=== PATIENT | female | born 1965 | race Caucasian/White ===

== ENCOUNTER → 2020-04-30 13:21 | Outpatient (BNVA) | payer OTHER, SELFPAY | PROVIDERS: PCP Internal Medicine; Referring Provider Internal Medicine; Visit Provider Physician Assistant | DX: Z76.89 Persons encountering health services in other specified circumstances (principal) ==

== ENCOUNTER 2020-05-03 13:31 | Outpatient (REF) | payer OTHER, SELFPAY | END 2020-05-03 13:32 | disposition home or self-care (01) | LOC: HO.LAB 13:31 | PROVIDERS: PCP Internal Medicine; Referring Provider Internal Medicine; Visit Provider Obstetrics & Gynecology | DX: N95.0 Postmenopausal bleeding (principal); L29.2 Pruritus vulvae | CPT/HCPCS: 58100; 88305 ==

== ENCOUNTER → 2020-05-18 16:35 | Outpatient (BNVA) | payer OTHER, SELFPAY | PROVIDERS: Visit Provider Obstetrics & Gynecology | DX: Z76.89 Persons encountering health services in other specified circumstances (principal) ==

== ENCOUNTER 2020-05-24 06:26 | Outpatient (REF) | payer OTHER, SELFPAY ==
[2020-05-24 12:38] LABS: TSH reflex Free T4 4.72 mIU/mL (0.32-4.0)
[2020-05-24 13:27] LABS: Free T4 (Free Thyroxine) 0.97 ng/dL (0.71-1.85)
== END 2020-05-24 06:27 | disposition home or self-care (01) ==
LOC: HO.HMGCLDS 06:26
PROVIDERS: PCP Internal Medicine; Visit Provider Internal Medicine
DX: E03.9 Hypothyroidism, unspecified (principal)
CPT/HCPCS: 84439; 84443

== ENCOUNTER 2020-06-05 15:04 | Outpatient (REF) | payer OTHER, SELFPAY ==
--- NOTE | 2020-06-05 15:13 | US_ITS ---
EXAMINATION: PELVIC ULTRASOUND CLINICAL INFORMATION: Postmenopausal bleeding. History of ablation 10 years ago. COMPARISON: None TECHNIQUE: Transabdominal and transvaginal pelvic ultrasound was performed. Transvaginal exam was performed for better visualization of the uterus and ovaries. Exam is limited due to body habitus. FINDINGS: The uterus is anteverted and measures 10 x 4.9 x 5.1 cm in dimension. The uterus is heterogeneous appearing. The endometrium is not well visualized. There are nabothian cysts in the cervix. The right ovary measures 2.1 x 1.8 x 1.6 cm. There is a 0.9 cm simple cyst in the right ovary. The left ovary is normal-appearing and measures 1.8 x 1.7 x 1 cm. There is no fluid in the pelvis. There are prominent vessels in the right adnexa questionable for pelvic congestion. US/US pelvic complete IMPRESSION: Very limited exam. The uterus is heterogeneous appearing and the endometrium is not well visualized. Small simple 9 mm cyst in the right ovary. Normal-appearing left ovary. Prominent right pelvic vessels questionable for pelvic congestion.
--- NOTE | 2020-06-05 15:13 | US_ITS ---
EXAMINATION: PELVIC ULTRASOUND CLINICAL INFORMATION: Postmenopausal bleeding. History of ablation 10 years ago. COMPARISON: None TECHNIQUE: Transabdominal and transvaginal pelvic ultrasound was performed. Transvaginal exam was performed for better visualization of the uterus and ovaries. Exam is limited due to body habitus. FINDINGS: The uterus is anteverted and measures 10 x 4.9 x 5.1 cm in dimension. The uterus is heterogeneous appearing. The endometrium is not well visualized. There are nabothian cysts in the cervix. The right ovary measures 2.1 x 1.8 x 1.6 cm. There is a 0.9 cm simple cyst in the right ovary. The left ovary is normal-appearing and measures 1.8 x 1.7 x 1 cm. There is no fluid in the pelvis. There are prominent vessels in the right adnexa questionable for pelvic congestion. US/US transvaginal IMPRESSION: Very limited exam. The uterus is heterogeneous appearing and the endometrium is not well visualized. Small simple 9 mm cyst in the right ovary. Normal-appearing left ovary. Prominent right pelvic vessels questionable for pelvic congestion.
== END 2020-06-05 15:05 | disposition home or self-care (01) ==
LOC: HO.US 15:04
PROVIDERS: PCP Internal Medicine; Visit Provider Obstetrics & Gynecology
DX: N95.0 Postmenopausal bleeding (principal)
CPT/HCPCS: 76830; 76856

== ENCOUNTER → 2020-06-08 10:38 | Outpatient (BNVA) | payer OTHER, SELFPAY | PROVIDERS: Visit Provider Advanced Practice Midwife | DX: Z76.89 Persons encountering health services in other specified circumstances (principal) ==

== ENCOUNTER → 2020-07-23 11:06 | Outpatient (BNVA) | payer OTHER, SELFPAY | PROVIDERS: PCP Internal Medicine; Visit Provider Obstetrics & Gynecology ==

== ENCOUNTER 2020-07-26 07:10 | Day surgery (SDC) | payer OTHER, SELFPAY ==
[2020-07-20 11:12] VITALS: BMI 46.0
[2020-07-25 09:00] VITALS: BMI 46.0
--- NOTE | 2020-07-25 11:46 | P.CONAN_ITS ---
Documented by User: Danita Hernandez 07/25/20 11:48 HPI - Anesthesia Eval Consult details Narrative: 55yo F for D&C Diagnostic Hysteroscopy Poss Polypectomy Myomectomy With Myosure [facility] Past Medical History Medical History (Updated 07/26/20 @ 08:09 by Deidra Forbes) Hypothyroid Increased BMI Leg pain, left Overweight Position dependent micturition Family History Family History Mother No problems noted. Father No problems noted. 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 Meds Allergies Allergy/AdvReac Type Severity Reaction Status Date / Time No Known Allergies Allergy Verified 07/26/20 07:21 Exam Exam Date and Time: July 25, 2020 1146 Height,Weight and Vital Signs: Height 5 ft 3 in Weight 118 kg Pertinent Lab Results Pertinent Lab Results: Laboratory Tests 02/06/20 02/06/20 11:33 11:33 WBC 8.8 Hgb 13.6 Hct 43.5 Plt Count 295 Sodium 140 Potassium 4.7 Chloride 107 BUN 11 Creatinine 0.83 Assessment and Plan Assessment Anesthesia Assessment: Chart Reviewed Documented by User: Deidra Forbes 07/26/20 08:13 [facility] Past Medical History Medical History (Updated 07/26/20 @ 08:09 by Deidra Forbes) Hypothyroid Increased BMI Leg pain, left Overweight Position dependent micturition Family History Family History Mother No problems noted. Father No problems noted. 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 Meds Allergies Allergy/AdvReac Type Severity Reaction Status Date / Time No Known Allergies Allergy Verified 07/26/20 07:21 Exam Height,Weight and Vital Signs: Vital Signs Temp Pulse Resp BP Pulse Ox 07/26/20 07:48 98.9 F 72 16 147/74 H 99 Airway Mallampati Class: II TM Dist: >3cm Neck ROM: Full Loose/Missing/Broken Teeth: No (Crowns intact) Heart: RRR ?systolic murmur Lungs: CTAB Assessment and Plan Assessment Anesthesia Assessment: Anesthesia Plan Discussed and Chart Reviewed Final Anesthetic Review NPO: Yes ASA Class: III Final Preanesthetic Review: No Changes in Pt Med Stat, Meds/Allgs Chart Reviewe d, Consent Obtained/Reviewed and Anes Risks/Benef Reviewed Patient Risk: Intermediate Procedure Risk: Low Assessment/Block/Sedation in SS: Assess/Block/Sedation-SS Anesthetic Plan Anesthetic Plan: GA Disposition: Standard PACU
[2020-07-26] VITALS (7 sets, daily range): BP systolic 109–147; BP diastolic 57–74; PULSE 60–72; RESP 16; TEMP 36–37.2; O2SAT 92–99
--- NOTE | 2020-07-26 07:27 | MHC.SHP ---
Pre-Procedural Eval Section A The patient is an INPATIENT: No Changes since office visit: No Cold of Flu in the past 2 weeks, No New Medical Problems, No Changes in Medication and No Patient answered all questions The History & Physical has been completed within 30 days and I have reviewed it.: Yes Section B Chief Complaint: Postmenopausal Bleeding Allergies: Allergies Allergy/AdvReac Type Severity Reaction Status Date / Time No Known Allergies Allergy Verified 07/26/20 07:21 Plan I have reviewed the history and physical and performed a pertinent physical examination on my patient. No changes have occurred unless specified.
[2020-07-26] MEDS: Lactated Ringers 1,000 ML 100 ML IVCONT (08:00)
--- NOTE | 2020-07-26 10:31 | P.OP_ITS ---
Operative Note Operative Note Date of Service: 07/26/20 Narrative: Ms. Spain is a 55 year old with postmenopausal bleeding. She presents today for hysteroscopy d&c after endometrial biopsy performed in the office did not return endometrial tissue and pelvic ultrasound was non-di agnostic (with the endometrial lining not well visualized and unable to be measured. Surgical Risks: The patient was informed of the risks and benefits of a hysteroscopy with dilation and curettage. Risks included but were not limited to bleeding, infection, injury to the vulva, vagina, or cervix, and uterine perforation with possible need for further surgery. The patient expressed understanding of the risks involved, all questions were answered, and the patient consented to the procedure. The patient was taken to the operating room where a time out was confirmed to confirm correct patient and correct procedure. Adequate general anesthesia was established. The patient was then positioned on the operating table in the dorsal lithotomy position with her legs supported using stirrups. All pressure points were padded and a warm blanket was placed to maintain control of core body temperature. The patient was then prepped and draped in the usual sterile fashion. A bimanual exam was performed and the uterus was found to be anteverted. A straight catheter was inserted into the bladder and 150mL of urine was obtained. A bivalve speculum was then inserted into the vagina. The anterior lip of the cervix was visualized and grasped using a single tooth tenaculum. The cervix was adequately dilated using Small dilators for the introduction of the hysteroscope. The hysteroscope was introduced under direct visualization using normal saline solution as the distending media. The hysteroscope was advanced to the fundus and the entire uterine cavity was inspected. The cavity appeared lined with polypoid tissue. Towards the fundus there was what appeared to be a small opening with further extension of the cavity. This was unable to be accessed with the hysteroscope. The myosure device was then advanced and used to take a directed sample of polypoid appearing tissue on the left sidewall. The myosure was then retracted and he hysteroscope was removed with the retracted myosure. A sharp curette was then advanced to the fundus and a sharp curetting was performed starting at the 12 o?clock position and rotating a total of 360 degrees in order to cover all surfaces. Endometrial tissue was obtained and was sent to pathology. Following the curetting, good hemostasis was noted. The single-tooth tenaculum was removed from the anterior lip of the cervix and hemostasis was also noted at the tenaculum puncture sites. The speculum was then removed from the vagina. At the end of the procedure, all needle, sponge, and instrument counts were noted to be correct x2. The patient was transferred to the recovery room in stable condition. Fluid Deficit was recorded on the Myosure tower as being over 1300mL; however, a single back of 3,000mL was used for the procedure with 2600mL of fluid in the suction canister. Actual fluid deficit is therefore estimated to have not exceeded 400mL.
[2020-07-26] MEDS: Acetaminophen 325 MG TABLET 650 MG PO (10:36)
[2020-07-26] MEDS: Ketorolac Tromethamine 15 MG/ML VIAL 30 MG IV (10:45)
--- NOTE | 2020-07-26 11:22 | HO.POSTANES ---
Post Anesthesia Evaluation Post Anesthesia Evaluation Vital Signs: Vital Signs Temp Pulse Resp BP Pulse Ox 07/26/20 10:48 97.2 F 60 16 122/61 96 07/26/20 10:34 97.2 F 68 16 109/61 96 07/26/20 10:20 97.2 F 61 16 116/60 96 07/26/20 10:16 64 16 115/60 97 07/26/20 10:11 62 16 112/57 L 92 07/26/20 10:06 96.8 F 71 16 116/57 L 98 07/26/20 07:48 98.9 F 72 16 147/74 H 99 Anesthesia: General Endotracheal-GETA Mental Status: Awake Pain Control: Satisfactory Nausea/Vomiting: None Hydration: Adequate Anesthesia-Related Issues: No Anes. Related Issues
== END 2020-07-26 11:25 | disposition home or self-care (01) ==
LOC: HO.SSS 07:10
PROVIDERS: PCP Internal Medicine; Visit Provider Obstetrics & Gynecology
PROC: 0UDB8ZX Extraction of Endometrium, Via Natural or Artificial Opening Endoscopic, Diagnostic (ICD-10-PCS; CPT 58558; principal; 2020-07-26 08:40)
DX: N95.0 Postmenopausal bleeding (principal); N84.0 Polyp of corpus uteri; R39.192 Position dependent micturition; E66.3 Overweight; Z79.899 Other long term (current) drug therapy
CPT/HCPCS: 58558; 88305; J1100; J1885; J2250; J2405; J3010

== ENCOUNTER 2020-08-06 11:03 | Outpatient (REF) | payer OTHER, SELFPAY ==
[2020-08-06 14:37] LABS: TSH reflex Free T4 0.13 uIU/mL (0.32-4.0)
[2020-08-06 15:10] LABS: Free T4 (Free Thyroxine) 1.29 ng/dL (0.71-1.85)
== END 2020-08-06 11:04 | disposition home or self-care (01) ==
LOC: HO.HMGCLDS 11:03
PROVIDERS: PCP Internal Medicine; Visit Provider Internal Medicine
DX: E03.9 Hypothyroidism, unspecified (principal)
CPT/HCPCS: 36415; 84439; 84443

== ENCOUNTER → 2020-08-08 15:24 | Outpatient (BNVA) | payer OTHER, SELFPAY | PROVIDERS: PCP Internal Medicine; Visit Provider Obstetrics & Gynecology ==

== ENCOUNTER 2021-01-11 14:02 | Outpatient (REF) | payer OTHER, SELFPAY ==
--- NOTE | ~2021-01-11 | MM_ITS ---
EXAMINATION: MM SCREENING DIGITAL BREAST TOMOSYNTHESIS, BILATERAL CLINICAL INFORMATION: Screening. Asymptomatic. Family history breast cancer, sister. The lifetime risk of breast cancer based on the Tyrer-Cuzick Model is 14%. COMPARISON: Mammography: 01/11/2020; outside exam 08/22/2009 ([facility]). TECHNIQUE: Digital breast tomosynthesis is performed in both the craniocaudal and mediolateral oblique views along with computer-aided detection (CAD). Synthesized 2D images are generated from the tomosynthesis. FINDINGS: There are scattered areas of fibroglandular density (ACR BI-RADS breast composition Category b). There are no significant masses, abnormal calcifications, or other abnormalities. Parenchymal pattern is similar to prior study. No significant changes. MM/MM tomosynthesis screening BI IMPRESSION: No mammographic evidence of malignancy. ASSESSMENT: BI-RADS 1: Negative RECOMMENDATION: Routine annual mammography screening. This patient's information was entered into a reminder system with a target due date for their next mammogram.
== END 2021-01-11 14:03 | disposition home or self-care (01) ==
LOC: HO.MAMMO 14:02
PROVIDERS: PCP Internal Medicine; Visit Provider Internal Medicine
DX: Z12.31 Encounter for screening mammogram for malignant neoplasm of breast (principal)
CPT/HCPCS: 77063; 77067

== ENCOUNTER 2021-01-25 10:06 | Outpatient (REF) | payer OTHER, SELFPAY ==
[2021-01-25 11:24] LABS: Glucose Urine UA NEG (NEG); Leukocyte Esterase Urine NEG (NEG); Nitrite Urine NEG (NEG); Urine Blood NEG (NEG); Urine Ketones NEG (NEG); Urine Protein NEG (NEG-TRACE)
[2021-01-25 11:26] LABS: Appearance Urine CLEAR; Color Urine YELLOW
[2021-01-25 11:38] LABS: Hematocrit 42.6 % (37-47); Hemoglobin 13.5 g/dl (12.0-16.0); Mean Corpuscular HGB Conc 31.7 g/dl (31.0-35.0); Mean Corpuscular Hemoglobin 29.3 pg (27.0-33.0); Mean Corpuscular Volume 92.4 fL (80-98); Mean Platelet Volume 11.8 fL (9.4-12.3); Platelet Count 232 X10*3/uL (160-400); Red Blood Count 4.61 X10*6/uL (4.20-5.50); Red Cell Distribution Width 13.4 % (11.0-16.0); White Blood Count 6.4 X10*3/uL (4.8-10.8)
[2021-01-25 11:41] LABS: Mucus Urine 1+ /LPF; RBC Urine 0 /HPF (0); Squamous Epithelial Cell Urine 4+ /LPF; WBC Urine 0 /HPF (0-4)
[2021-01-25 12:01] LABS: Alanine Aminotransferase 7 U/L (0-31); Albumin Level 3.8 g/dL (3.5-5.0); Alkaline Phosphatase 138 U/L (39-117); Anion Gap 13 (12-20); Aspartate Amino Transferase 18 U/L (5-31); Bilirubin Total 0.5 mg/dL (0.0-1.0); Blood Urea Nitrogen 15 mg/dL (9-16); Calcium 9.1 mg/dL (8.4-10.2); Carbon Dioxide 24 mmol/L (22-29); Chloride 108 mmol/L (96-108); Cholesterol 162 mg/dL; Estimated Glomerular Filt Rate > 60; Glucose Fasting 103 mg/dL (60-99); HDL Cholesterol 44 mg/dL; LDL Cholesterol Calculated 107 mg/dl; Potassium 4.5 mmol/L (3.3-5.1); Sodium 140 mmol/L (135-145); Total Protein 6.7 g/dL (6.5-8.0); Triglycerides 57 mg/dL
[2021-01-25 12:24] LABS: TSH reflex Free T4 2.39 uIU/mL (0.32-4.0)
== END 2021-01-25 10:07 | disposition home or self-care (01) ==
LOC: HO.HMGCLDS 10:06
PROVIDERS: PCP Internal Medicine; Visit Provider Internal Medicine
DX: Z00.00 Encounter for general adult medical examination without abnormal findings (principal)
CPT/HCPCS: 36415; 80053; 80061; 81001; 84443; 85027

== ENCOUNTER → 2021-02-12 09:09 | Outpatient (BNVA) | payer OTHER, SELFPAY | PROVIDERS: PCP Internal Medicine; Visit Provider Advanced Practice Midwife ==

== ENCOUNTER 2022-01-13 10:52 | Outpatient (REF) | payer OTHER, SELFPAY ==
--- NOTE | ~2022-01-13 | MM_ITS ---
EXAMINATION: MM SCREENING DIGITAL BREAST TOMOSYNTHESIS, BILATERAL CLINICAL INFORMATION: Screening. Asymptomatic. The lifetime risk of breast cancer based on the Tyrer-Cuzick Model is 14%. COMPARISON: Mammography: 01/11/2021, 01/11/2020; outside mammography 08/22/2009 ([facility]). TECHNIQUE: Digital breast tomosynthesis is performed in both the craniocaudal and mediolateral oblique views along with computer-aided detection (CAD). Synthesized 2D images are generated from the tomosynthesis. FINDINGS: There are scattered areas of fibroglandular density (ACR BI-RADS breast composition Category b). There are no significant masses, abnormal calcifications, or other abnormalities. No developing density or architectural abnormality. No significant changes. MM/MM tomosynthesis screening BI IMPRESSION: No mammographic evidence of malignancy. ASSESSMENT: BI-RADS 1: Negative RECOMMENDATION: Routine annual mammography screening. This patient's information was entered into a reminder system with a target due date for their next mammogram.
== END 2022-01-13 10:53 | disposition home or self-care (01) ==
LOC: HO.MAMMO 10:52
PROVIDERS: PCP Internal Medicine; Visit Provider Internal Medicine
DX: Z12.31 Encounter for screening mammogram for malignant neoplasm of breast (principal)
CPT/HCPCS: 77063; 77067

== ENCOUNTER 2022-01-27 13:42 | Outpatient (REF) | payer OTHER, SELFPAY ==
[2022-01-27 16:29] LABS: MANUAL DIFF FLAG NO
[2022-01-27 16:45] LABS: Basophils Percent Auto 0.6 % (0-2); Eosinophils Absolute Auto 0.1 X10*3/uL (0.0-0.4); Eosinophils Percent Auto 1.7 % (0-4); Hematocrit 42.6 % (37.0-47.0); Hemoglobin 13.8 g/dl (12.0-16.0); Imm Gran Abs Auto 0.02 X10*3/uL (0.00-0.03); Imm Gran Pct Auto 0.3 % (0.0-0.4); Lymphocytes Absolute Auto 2.5 X10*3/uL (1.2-4.9); Lymphocytes Percent Auto 39.4 % (20-40); Mean Corpuscular HGB Conc 32.4 g/dl (31.0-35.0); Mean Corpuscular Hemoglobin 29.9 pg (27.0-33.0); Mean Corpuscular Volume 92.4 fL (80.0-98.0); Mean Platelet Volume 10.6 fL (9.4-12.3); Monocytes Absolute Auto 0.5 X10*3/uL (0.1-1.2); Monocytes Percent Auto 7.6 % (2-11); Neutrophils Absolute Auto 3.3 x10*3/uL (2.0-8.3); Neutrophils Percent Auto 50.4 % (45-73); Platelet Count 248 X10*3/uL (160-400); Red Blood Count 4.61 X10*6/uL (4.20-5.50); Red Cell Distribution Width 13.2 % (11.0-16.0); White Blood Count 6.5 X10*3/uL (4.8-10.8)
[2022-01-27 16:56] LABS: Alanine Aminotransferase 9 U/L (0-31); Albumin Level 4.1 g/dL (3.5-5.0); Alkaline Phosphatase 95 U/L (39-117); Anion Gap 11 (12-20); Aspartate Amino Transferase 17 U/L (5-31); Bilirubin Total 0.7 mg/dL (0.0-1.0); Blood Urea Nitrogen 18 mg/dL (9-16); Carbon Dioxide 26 mmol/L (22-29); Chloride 107 mmol/L (96-108); Cholesterol 196 mg/dL; Estimated Glomerular Filt Rate > 60; Glucose Fasting 85 mg/dL (60-99); HDL Cholesterol 55 mg/dL; LDL Cholesterol Calculated 131 mg/dl; Potassium 4.7 mmol/L (3.3-5.1); Sodium 139 mmol/L (135-145); Triglycerides 52 mg/dL
[2022-01-27 17:15] LABS: TSH reflex Free T4 2.37 uIU/mL (0.32-4.0)
== END 2022-01-27 13:43 | disposition home or self-care (01) ==
LOC: HO.HMGCLDS 13:42
PROVIDERS: Visit Provider Internal Medicine
DX: Z00.00 Encounter for general adult medical examination without abnormal findings (principal); E03.9 Hypothyroidism, unspecified
CPT/HCPCS: 36415; 80053; 80061; 84443; 85025

== ENCOUNTER 2023-01-13 13:55 | Outpatient (REF) | payer OTHER, SELFPAY ==
[2023-01-13 16:19] LABS: MANUAL DIFF FLAG NO
[2023-01-13 16:30] LABS: Basophils Percent Auto 0.5 % (0-2); Eosinophils Absolute Auto 0.1 X10*3/uL (0.0-0.4); Eosinophils Percent Auto 1.4 % (0-4); Hematocrit 43.1 % (37.0-47.0); Hemoglobin 13.9 g/dl (12.0-16.0); Imm Gran Abs Auto 0.03 X10*3/uL (0.00-0.03); Imm Gran Pct Auto 0.4 % (0.0-0.4); Lymphocytes Percent Auto 26.8 % (20-40); Mean Corpuscular HGB Conc 32.3 g/dl (31.0-35.0); Mean Corpuscular Hemoglobin 29.6 pg (27.0-33.0); Mean Corpuscular Volume 91.9 fL (80.0-98.0); Mean Platelet Volume 10.7 fL (9.4-12.3); Monocytes Absolute Auto 0.6 X10*3/uL (0.1-1.2); Monocytes Percent Auto 7.7 % (2-11); Neutrophils Absolute Auto 4.7 x10*3/uL (2.0-8.3); Neutrophils Percent Auto 63.2 % (45-73); Platelet Count 275 X10*3/uL (160-400); Red Blood Count 4.69 X10*6/uL (4.20-5.50); White Blood Count 7.4 X10*3/uL (4.8-10.8)
[2023-01-13 20:46] LABS: Alanine Aminotransferase 11 U/L (0-31); Albumin Level 3.9 g/dL (3.5-5.0); Alkaline Phosphatase 109 U/L (39-117); Anion Gap 15 (12-20); Aspartate Amino Transferase 18 U/L (5-31); Bilirubin Total 0.7 mg/dL (0.0-1.0); Blood Urea Nitrogen 17 mg/dL (9-16); Calcium 9.9 mg/dL (8.4-10.2); Carbon Dioxide 22 mmol/L (22-29); Chloride 108 mmol/L (96-108); Cholesterol 231 mg/dL; Estimated Glomerular Filt Rate > 60; Glucose Fasting 91 mg/dL (60-99); HDL Cholesterol 63 mg/dL; LDL Cholesterol Calculated 150 mg/dl; Potassium 4.2 mmol/L (3.3-5.1); Sodium 141 mmol/L (135-145); Total Protein 7.2 g/dL (6.5-8.0); Triglycerides 90 mg/dL
[2023-01-13 21:00] LABS: TSH reflex Free T4 2.34 uIU/mL (0.32-4.0)
== END 2023-01-13 13:56 | disposition home or self-care (01) ==
LOC: HO.HMGCLDS 13:55
PROVIDERS: PCP Internal Medicine; Visit Provider Internal Medicine
DX: Z00.00 Encounter for general adult medical examination without abnormal findings (principal); E03.9 Hypothyroidism, unspecified
CPT/HCPCS: 36415; 80053; 80061; 84443; 85025

== ENCOUNTER → 2023-01-15 10:00 | Outpatient (BNV) | payer OTHER, SELFPAY | PROVIDERS: PCP Internal Medicine; Visit Provider Radiology Diagnostic Radiology | DX: Z12.31 Encounter for screening mammogram for malignant neoplasm of breast (principal) | CPT/HCPCS: 77063; 77067 ==

== ENCOUNTER 2023-01-15 10:27 | Outpatient (REF) | payer OTHER, SELFPAY ==
--- NOTE | ~2023-01-15 | MM_ITS ---
EXAMINATION: MM SCREENING DIGITAL BREAST TOMOSYNTHESIS, BILATERAL CLINICAL INFORMATION: Screening. Asymptomatic. The lifetime risk of breast cancer based on the Tyrer-Cuzick Model is 13.2%. COMPARISON: Mammography: This study is compared with prior exams dating back to to 2 oh. TECHNIQUE: Digital breast tomosynthesis is performed in both the craniocaudal and mediolateral oblique views along with computer-aided detection (CAD). Synthesized 2D images are generated from the tomosynthesis. FINDINGS: There are scattered areas of fibroglandular density (ACR BI-RADS breast composition Category b). There are no significant masses, abnormal calcifications, or other abnormalities. MM/MM tomosynthesis screening BI IMPRESSION: No mammographic evidence of malignancy. ASSESSMENT: BI-RADS BI-RADS 1 - Negative RECOMMENDATION: Routine annual mammography screening. 1 year F/U This examination should not preclude the clinical evaluation of a suspicious palpable abnormality. This patient's information was entered into a reminder system with a target due date for their next mammogram.
== END 2023-01-15 10:28 | disposition home or self-care (01) ==
LOC: HO.MAMMO 10:27
PROVIDERS: PCP Internal Medicine; Visit Provider Internal Medicine
DX: Z12.31 Encounter for screening mammogram for malignant neoplasm of breast (principal)
CPT/HCPCS: 77063; 77067

== ENCOUNTER 2023-01-28 10:24 | Outpatient (AMB) | payer OTHER, SELFPAY ==
--- NOTE | 2023-01-28 10:42 | A.OFFPC_ITS ---
Vital Signs 01/28/23 10:43 Height 5 ft 3 in Weight 244 lb BMI 43.2 BP 130/76 Blood Pressure Location Lt brachial Position Sitting Pulse 77 Pulse Source Pulse Oximeter Pulse Oximetry (%) 99 Oxygen Delivery Method Room Air Intake Visit Reasons: Annualcheck up Intake Note: Pt is here today for PE. [place] [facility] [place]. Allergies No Known Allergies Allergy (Verified 01/28/23 10:44) Medication List - Last Reconciled 01/28/23 by Hailey Vega MD cholecalciferol (vitamin D3) 25 mcg PO DAILY levothyroxine 50 mcg PO DAILY Tobacco use date assessed: 01/28/23 Dental Screening Dental Screen Date: 01/28/23 Did you have a dental visit in the last 12 months?: Yes Did you have a dental problem in the last 6 months where you did not have access to dental care?: No Was dental information given to patient?: Patient has dentist HPI Annualcheck up HPI Details patient presents for physical [facility] Medical History (Updated 01/28/23 @ 11:27 by Hailey Vega MD) Annual physical exam Hypothyroid Increased BMI Migraine Overweight Position dependent micturition Surgical History H/O colonoscopy History of endometrial ablation Family History Mother No problems noted. Father No problems noted. 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 1. Little interest or pleasure in doing things: not at all 2. Feeling down, depressed, or hopeless: not at all 3. Trouble falling or staying asleep, or sleeping too much: not at all 4. Feeling tired or having little energy: not at all 5. Poor appetite or overeating: not at all 6. Feeling bad about yourself - or that you are a failure or have let yourself or your family down: not at all 7. Trouble concentrating on things, such as reading the newspaper or watching television: not at all 8. Moving or speaking so slowly that other people could have noticed. Or the opposite - being so fidgety or restless that you have been moving around a lot more than usual: not at all 9. Thoughts that you would be better off or of hurting yourself in some way: not at all Total score: 0 Depression Screening Interpretation: Negative Source: Developed by Drs. Josiah Garcia, Ramonita James, Jasiel Elam and colleagues, with an educational devin from [employer]. Thrive Questionnaire Date Thrive assessed: 01/28/23 I am a: Patient What is your living situation today?: I have a steady place to live Within the past 12 months, did the food you bought not last and you didn't have the money to get more?: Never true Within the past 12 months, did you worry whether your food would run out before you got money to buy more?: Never true Do you have trouble paying for medicines?: No Do you have trouble getting transportation to medical appointments?: No Do you have trouble paying your heating and electricity bill?: No Do you have trouble taking care of your child, family member or friend?: No Do you have trouble with day-to-day activities such as bathing, preparing meals, shopping, managing finances, etc.?: No Are you currently unemployed and looking for a job?: No Are you interested in more education?: No Please select the resources that you would like help with: None Currently or been in a relationship where the following occur: no concerns reported AUDIT C Alcohol Use Questionnaire (AUDIT-C) 1. How often do you have a drink containing alcohol?: Never 3. How often do you have six or more drinks on one occasion?: Never Total Score: 0 LILIYA-7 AMB Questionnaire LILIYA-7 Date LILIYA - 7 assessed: 01/28/23 Feeling nervous, anxious, or on edge: 0 = Not at all Not being able to stop or control worryin = Not at all Worrying too much about different things: 0 = Not at all Trouble relaxin = Not at all Being so restless that it is hard to sit still: 0 = Not at all Becoming easily annoyed or irritable: 0 = Not at all Feeling afraid as if something awful might happen: 0 = Not at all Total LILIYA-7 score (0-4 normal; 5-9 mild; 10-14 moderate; 15-21 severe): 0 Source: Developed by Drs. Josiah Garcia, Ramonita James, Jasiel Elam and colleagues, with an educational devin from [employer]. Review of Systems Const All systems reviewed & are unremarkable except as noted in HPI and below Reports no additional complaints Eyes Reports no additional complaints ENT Reports no additional complaints Card Reports no additional complaints Resp Reports no additional complaints GI Reports no additional complaints Reports no additional complaints Physical exam (Primary Care) Vital Signs: Last Vital Signs Pulse 77 01/28/23 10:43 BP 130/76 01/28/23 10:43 Pulse Ox 99 01/28/23 10:43 Oxygen Delivery Method Room Air 01/28/23 10:43 BMI result Body Mass Index 43.2 Tobacco/Smoking Status: Tobacco use Status Tobacco use date assessed 01/28/23 01/28/23 10:47 Patient Tobacco Use Status Never used Tobacco 01/28/23 10:47 e-Cigarette/Vaping Use Never Used 01/28/23 10:47 PHQ-9: PHQ-9 Score PHQ-9: Total score 0 01/28/23 10:47 Depression Screening Interpretation: Negative Thrive Assessment: Date of Thrive Assessment Date Thrive assessed 01/28/23 01/28/23 10:47 Currently or been in a relationship where the following occur: no concerns reported Const General: no acute distress HENMT Head: Yes normal to inspection Ears: hearing grossly normal bilaterally Face and sinus: Yes normal facial exam Throat: Yes posterior oropharynx normal Eyes General: appearance normal, both eyes and all related structures Neck Neck: Yes no lymphadenopathy and Yes supple Resp Effort & Inspection: normal respiratory effort Auscultation: clear to auscultation bilaterally Cardio Rhythm: regular rhythm Heart sounds: S1 normal heart sound present and S2 normal heart sound present GI Inspection: Yes normal to inspection Palpation (GI): Soft to palpation Percussion: Yes normal to percussion Auscultation: normal bowel sounds Assessment and Plan Assessment & Plan (1) Hyperlipidemia: Code(s): E78.5 - Hyperlipidemia, unspecified Plan: low-cholesterol diet increase exercise discussed with the patient. She will be referred to head housekeeper discussed low-cholesterol diet. Patient will follow-up in 6 months with a fasting labs before (2) Heart murmur: Code(s): R01.1 - Cardiac murmur, unspecified (3) Hypothyroid: Comment: taking levothyroxine Code(s): E03.9 - Hypothyroidism, unspecified (4) Annual physical exam: Code(s): Z00.00 - Encounter for general adult medical examination without abnormal findings Plan: healthy lifestyle discussed with the patient. She is up-to-date with ma mmogram colonoscopy and Pap smear Orders: Orders CA echo transthoracic complete Today R01.1 - Cardiac murmur, unspecified Lipid Panel 6 Months E78.5 - Hyperlipidemia, unspecified Referrals Nutrition/Dietitian Referral E78.5 - Hyperlipidemia, unspecified Medications: Refilled levothyroxine 50 mcg PO DAILY 90 tabs 3RF Coding Level of Care Code Est Pt Prev Care 40-64y(86944) Diagnoses Hyperlipidemia E78.5 Heart murmur R01.1 Hypothyroid E03.9 Annual physical exam Z00.00
[2023-01-28 10:43] VITALS: BP 130/76; PULSE 77; O2SAT 99; BMI 43.2
== END 2023-01-28 11:31 | disposition home or self-care (01) ==
PROVIDERS: PCP Internal Medicine; Visit Provider Internal Medicine
DX: E78.5 Hyperlipidemia, unspecified (principal); R01.1 Cardiac murmur, unspecified; E03.9 Hypothyroidism, unspecified; Z00.00 Encounter for general adult medical examination without abnormal findings
CPT/HCPCS: 99396

== ENCOUNTER → 2023-02-05 12:59 | Outpatient (REF) | payer OTHER, SELFPAY ==
--- NOTE | 2023-02-05 13:01 | CA_ITS ---
Transthoracic Echocardiogram Patient (Last, First, Middle): Amarilis Spain, Gender: Female Date of : 1965 Age: 57 Procedure Date: 02/05/2023 Procedure Type: Transthoracic Echocardiogram Location: OP Height: 160.02 cm Weight: 99.79 kg BSA: 2.01 m2 Heart Rate: bpm BP: 130 / 74 mmHg Director Non Profit: TO Referring MD: Hailey Vega MD Symptoms: R01.1 - Cardiac murmur, unspecified Study Quality: Adequate ECG Rhythm: Sinus Conclusions: - The left ventricular systolic function is normal. The calculated ejection fraction is 67% by biplane method. - There is moderate calcification of the aortic valve. - There is moderate mitral annular calcification. Findings Left Ventricle Normal left ventricular cavity size. The left ventricular systolic function is normal. The calculated ejection fraction is 67% by biplane method. There is no evidence of regional wall motion abnormalities. Evidence suggests grade I (mild) diastolic dysfunction. There is mild septal asymmetric hypertrophy. Right Ventricle Normal right ventricular cavity size and systolic function. Atria The left atrium is likely dilated. The right atrium is normal in size. Aortic Valve There is moderate calcification of the aortic valve. There is no aortic valve stenosis. There is no aortic valve regurgitation. Mitral Valve There is mild anterior mitral leaflet thickening. There is moderate mitral annular calcification. There is no mitral valve regurgitation. There is no mitral valve stenosis. Pulmonic Valve The pulmonic valve is likely normal. Tricuspid Valve Normal tricuspid valve structure. There is trace tricuspid valve regurgitation. There is no evidence of pulmonary hypertension. Great Vessels The asc aorta is normal in size. Venous The inferior vena cava is normal in size and collapses greater than 50% with inspiration. Pericardium/Pleural There is no evidence of pericardial effusion. Prior Study Comparison Changes noted compared to prior study dated: 07/01/2002. Valvular calcification noted. Measurements 2D Linear Measurements IVSd: 1.20 0.6-0.9/0.6-1.0 cm LVIDd: 4.50 3.9-5.3/4.2-5.9 cm LVIDd Index: 2.24 2.4-3.2/2.2-3.1 cm/m2 LVIDs: 2.80 2.0-3.6 cm LVPWd: 1.00 0.7-1.1 cm LA Diam: 4.10 2.7-3.8/3.0-4.0 cm LAIDs Index: 2.04 1.5-2.3 cm/m2 LV Mass: 218.02 67-162/88-224 g LV Mass Index: 108.47 43-95/49-115 g/m2 LVOT Diam: 2.00 3.0+(-)1.3 cm 2D Systolic Function EF 4C: 66.70 >55% EF 2C: 69.30 >55% EF BiP: 66.70 >55% Mitral Valve MV VTI: 0.49 MV Pk Castillo: 1.47 MV Mn Castillo: 0.87 MV Pk Grad: 9.00 MV Mn Grad: 4.00 MV Pk E: 1.03 MV PK A: 1.48 MV Decel Time: 339.00 E/A: 0.70 E'Lateral: 5.33 E'Medial: 4.35 E/E' Med: 23.70 E/E' Lat: 19.30 PHT: 99.00 MVA PHT: 2.22 MVA Continuity: 1.97 Decel [place]: 3.03 Aortic Valve AoV Pk Castillo: 2.10 AoV Mn Castillo: 1.37 AoV VTI: 0.45 AoV Pk Grad: 18.00 Aov Mn Grad: 9.00 SREEKANTH Cont.VTI: 2.12 LVOT LVOT Pk Castillo: 1.23 LVOT Mn Castillo: 0.83 LVOT VTI: 0.31 LVOT Pk Grad: 6.00 LVOT Mn Grad: 3.00 LVOT Diam: 2.00 LVOT Area: 3.14 Diastolic Function MV Pk E: 1.03 MV Pk A: 1.48 E/A: 0.70 E'Medial: 4.35 E/E' Med: 23.70 E' Laterial: 5.33 E/E' Lat: 19.30 Right Ventricle TAPSE (mm): 30.90 TVS' Castillo: 13.50 Tricuspid Valve RA Press: 3.00 Great Vessels Aorta Sinus of Valsalva: 3.10 2.0-3.[address] [place]: 2.30 1.7-3.4 cm Ao Asc: 3.00 2.1-3.4 cm Updated in Other Vendor System with Status of Final Alex Mejia MD electronically signed on 02/07/2023 10:38:31 AM with status of Final
== END ==
LOC: HO.CARD 12:59
PROVIDERS: Visit Provider Internal Medicine
DX: R01.1 Cardiac murmur, unspecified (principal)
CPT/HCPCS: 93306

== ENCOUNTER → 2023-02-05 13:01 | Outpatient (BNV) | payer OTHER, SELFPAY | PROVIDERS: Visit Provider Internal Medicine | DX: I34.81 Nonrheumatic mitral (valve) annulus calcification (principal); I35.8 Other nonrheumatic aortic valve disorders | CPT/HCPCS: 93306 ==

== ENCOUNTER 2023-02-20 09:56 | Outpatient (AMB) | payer OTHER, SELFPAY ==
--- NOTE | 2023-02-20 09:58 | MHC.OFFVIS ---
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 Doing well with no plate embosser concerns. Patient admits she tries to eat a healthy diet including Vitamin D. She stays active with exercise. Currently sexually active. Denies vaginal dryness, itching and irritation. STD screening offered; she accepts. Denies family hx of colon and ovarian cancer. Last pap smear 01/09/20. Last mammogram 01/15/23. UTD on colonoscopy. REPLACED BY [facility] Medical History Annual physical exam Hypothyroid Increased BMI Migraine Overweight Position dependent micturition Surgical History H/O colonoscopy History of endometrial ablation Family History Mother No problems noted. Father No problems noted. 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 Cognitive needs: No Hearing needs: No Vision needs: No Female Reproductive History Menstrual Age of Menarche: 15 Menopause type: natural Total pregnancies: 2 Full term: 2 Number of Living Children: 2 Date of last pap smear: 01/09/20 Date of Mammogram: 01/15/23 Physical Exam Vital Signs: Last Vital Signs BP 124/80 02/20/23 09:59 BMI result Body Mass Index 43.0 Const General: cooperative, healthy appearing, no acute distress, well developed and alert Orientation/consciousness: patient oriented x3 HEENT Head: Yes normal to inspection Eyes General: appearance normal, both eyes and all related structures Neck Neck: Yes normal visual inspection Thyroid: Thyroid normal Chest Chest palpation & inspection: normal inspection of the chest Breast/axilla inspection: normal inspection of the breasts (no puckering, dimpling, peau de orange, retraction, discharge, masses) Breast/axilla palpation: normal palpation of the breasts Resp Effort & Inspection: normal respiratory effort GI Inspection: Yes normal to inspection and Yes obesity Palpation (GI): Soft to palpation (to palpation) Rectal Exam - Female: deferred General: Yes bladder normal to inspection External Female Exam: normal external appearance and normal appearance of the urethra Speculum Exam - Vagina: normal appearance of the vagina, normal palpation and vagina atrophic Speculum Exam - Cervix: normal appearance of the cervix and normal palpation Bimanual exam- vagina & uterus: normal palpation and normal palpation Bimanual Exam- Adnexa, other: normal adnexae and no masses Skin General skin exam: no rashes or lesions noted Neuro General: patient oriented x3 Cognition (Neuro): normal cognition Extrem General: Yes normal to inspection Psych Attitude: cooperative Thought process: Normal thought process present Assessment & Plan Assessment & Plan (1) Encounter for well woman exam: Code(s): Z01.419 - Encounter for gynecological examination (general) (routine) without abnormal findings Plan: Discussed: Current recommendations for pap smears per ASCCP guidelines. Breast awareness and periodic self breast exams. Encouraged yearly mammograms. Maintaining a healthy lifestyle including a well balanced diet including Calcium and Vitamin D and routine exercise. Contact office with any PMB. All of her questions and concerns were addressed to the best of my ability RTO in 1 year for AG. Coding Level of Care Code Est Pt Prev Care 40-64y(89094) Diagnoses Encounter for well woman exam Z01.419
[2023-02-20 09:59] VITALS: BP 124/80; BMI 43.0
== END 2023-02-20 10:25 | disposition home or self-care (01) ==
LOC: HO.HWS 09:56
PROVIDERS: PCP Internal Medicine; Visit Provider Advanced Practice Midwife
DX: Z01.419 Encounter for gynecological examination (general) (routine) without abnormal findings (principal)
CPT/HCPCS: 99396

== ENCOUNTER → 2023-02-20 09:56 | Outpatient (BNVA) | payer OTHER, SELFPAY | PROVIDERS: PCP Internal Medicine; Visit Provider Advanced Practice Midwife ==

== ENCOUNTER 2023-04-06 11:26 | Outpatient (AMB) | payer OTHER, SELFPAY ==
--- NOTE | 2023-04-06 11:43 | A.OFFVIS_ITS ---
Intake VS Expanded 04/06/23 11:44 04/06/23 11:49 Height 5 ft 3 in 5 ft 3 in Weight 250 lb 0.067 oz 250 lb BMI 44.3 44.3 Intake Visit Reasons: Hyperlipidemia/Confirmed Allergies No Known Allergies Allergy (Verified 02/20/23 10:03) HPI Nutrition Presentation Details Pt presents for MNT for hyperlipidemia Pt reports having had success with weight loss in 2020 reaching 220 lbs from 325 lbs . Pt reports lately increasing on snacks particularly at night. Pt is interested in resuming diet modifications to promote improvement in chol and weight. Pt reports keeping physically active, counting steps/miles reports walking 20-30 miles walk per week Pt reports having 3 meals/day following healthy plate method, however increasing snacks at night TFP-Jowgubr-Cr.Jeor Equation Height 5 ft 3 in Weight 250 lb Resting Metabolic Rate 1676.77 Calculated Activity Level Mild Activity Calories Needed to Maintain Weight 2305.56 Diagnosis Nutrition problem #1 excessive energy intake As related to (etiology) #1 diagnosis As evidenced by (sign/symptom) #1 high BMI (bmi at 44.3 (04/2023) , wt gain of 30 lbs since 2019) Most Recent Diabetes Results: Cholesterol 231 mg/dL 01/13/23 HDL Cholesterol 63 mg/dL 01/13/23 Triglycerides 90 mg/dL 01/13/23 Creatinine 0.80 mg/dL (0.5-1.4) 01/13/23 Blood Urea Nitrogen 17 mg/dL (9-16) H 01/13/23 Sodium 141 mmol/L (135-145) 01/13/23 Potassium 4.2 mmol/L (3.3-5.1) 01/13/23 Chloride 108 mmol/L (96-108) 01/13/23 Carbon Dioxide 22 mmol/L (22-29) 01/13/23 Calcium 9.9 mg/dL (8.4-10.2) 01/13/23 AST 18 U/L (5-31) 01/13/23 ALT 11 U/L (0-31) 01/13/23 Total Protein 7.2 g/dL (6.5-8.0) 01/13/23 Albumin 3.9 g/dL (3.5-5.0) 01/13/23 [facility] Medical History Annual physical exam Hypothyroid Increased BMI Migraine Overweight Position dependent micturition Surgical History H/O colonoscopy History of endometrial ablation Family History Mother No problems noted. Father No problems noted. 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 Cognitive needs: No Hearing needs: No Vision needs: No Female Reproductive History Menstrual Age of Menarche: 15 Assessment & Plan Assessment & Plan (1) Hyperlipidemia: Code(s): E78.5 - Hyperlipidemia, unspecified (2) Morbid obesity with BMI of 40.0-44.9, adult: Code(s): E66.01 - Morbid (severe) obesity due to excess calories; Z68.41 - Body mass index [BMI] 40.0-44.9, adult Plan: wt: 114 kg Est kcal needs as per MSJ: 2300 (40% carb, 30% protein/fat) Est fluid needs as per 30 ml/d: 3400 Est prot per day as per 1 g/kg bw: 114 Recommend fiber intake : 8-10 g per day and gradually increase to 25-28 g per day for women and 35-38 g for men or as tolerated Recommend sodium intake per day : less than 2000 mg Educated patient on: ( R = reviewed V = verbalizes understanding N/R = needs review N/A = not applicable * Food sources of carbohydrate, adequate serving sizes and its role in various health conditions: R V * Differences between complex carbohydrates a simple carbohydrates, role of fiber in diet: R V * Differences between types of fats and role in diet (mono on saturated fat fatty acids, saturated fatty acids, trans fats): R V * Food sources of sodium in salt and healthy modifications for heart health in kidney health: R V * Vitamins and minerals: R V * Healthy plate method concept: R V * Physical activity: Benefits a precaution: R V Patient Instructions: Work on reduction choosing high fiber foods and reducing calories at bedtime to less than 150 calories example choose 2 small fruits and 1 tbsp of peanut butter see list of snack ideas practice mindful eating Coding Level of Care Code Nutr Indiv Intake (37799) Diagnoses Hyperlipidemia E78.5 Morbid obesity with BMI of 40.0-44.9, adult E66.01; Z68.41 Time Spent (min) 30
[2023-04-06 11:44] VITALS: BMI 44.3
[2023-04-08 13:05] VITALS: BMI 44.3
== END 2023-04-06 12:15 | disposition home or self-care (01) ==
LOC: HO.ENCR 11:26
PROVIDERS: PCP Internal Medicine; Visit Provider Dietitian, Registered
DX: E78.5 Hyperlipidemia, unspecified (principal); E66.01 Morbid (severe) obesity due to excess calories; Z68.41 Body mass index [BMI] 40.0-44.9, adult

== ENCOUNTER → 2023-04-06 11:26 | Outpatient (BNVA) | payer OTHER, SELFPAY | PROVIDERS: PCP Internal Medicine; Visit Provider Dietitian, Registered | DX: E78.5 Hyperlipidemia, unspecified (principal); E66.01 Morbid (severe) obesity due to excess calories; Z68.41 Body mass index [BMI] 40.0-44.9, adult; Z71.3 Dietary counseling and surveillance | CPT/HCPCS: 97802 ==

== ENCOUNTER 2023-07-23 14:41 | Outpatient (REF) | payer OTHER, SELFPAY ==
[2023-07-23 17:24] LABS: Cholesterol 189 mg/dL (<200); HDL Cholesterol 45 mg/dL (>40); LDL Cholesterol Calculated 128 mg/dL (<100); Triglycerides 83 mg/dL (<150)
== END 2023-07-23 14:42 | disposition home or self-care (01) ==
LOC: HO.HMGCLDS 14:41
PROVIDERS: PCP Internal Medicine; Visit Provider Internal Medicine
DX: E78.5 Hyperlipidemia, unspecified (principal)
CPT/HCPCS: 36415; 80061

== ENCOUNTER 2023-08-05 08:23 | Outpatient (AMB) | payer OTHER, SELFPAY ==
--- NOTE | 2023-08-05 08:25 | MHC.PC.OV ---
Vital Signs 08/05/23 08:26 Height 5 ft 3 in Weight 236 lb BMI 41.8 BP 118/76 Blood Pressure Location Lt brachial Position Sitting Pulse 68 Pulse Source Pulse Oximeter Pulse Oximetry (%) 98 Oxygen Delivery Method Room Air Intake Visit Reasons: 6 month follow up Intake Note: Pt is here today for 6 months follow up visit. Allergies No Known Allergies Allergy (Verified 08/05/23 08:28) Medication List - Last Reconciled 08/05/23 by Hailey Vega MD cholecalciferol (vitamin D3) 25 mcg PO DAILY levothyroxine 50 mcg PO DAILY Tobacco use date assessed: 08/05/23 Dental Screening Dental Screen Date: 08/05/23 Did you have a dental visit in the last 12 months?: Yes Did you have a dental problem in the last 6 months where you did not have access to dental care?: No Was dental information given to patient?: Patient has dentist HPI 6 month follow up HPI Details Patient presents for the follow-up of hyperlipidemia and hypothyroidism. She jointed weight watchers 2 months ago and lost 14 lb. Patient has been exercising regularly [facility] Medical History (Updated 08/05/23 @ 09:21 by Hailey Vega MD) Migraine Annual physical exam Increased BMI Position dependent micturition Overweight Hypothyroid Surgical History H/O colonoscopy History of endometrial ablation Family History Mother No problems noted. Father No problems noted. 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 1. Little interest or pleasure in doing things: not at all 2. Feeling down, depressed, or hopeless: not at all 3. Trouble falling or staying asleep, or sleeping too much: not at all 4. Feeling tired or having little energy: not at all 5. Poor appetite or overeating: not at all 6. Feeling bad about yourself - or that you are a failure or have let yourself or your family down: not at all 7. Trouble concentrating on things, such as reading the newspaper or watching television: not at all 8. Moving or speaking so slowly that other people could have noticed. Or the opposite - being so fidgety or restless that you have been moving around a lot more than usual: not at all 9. Thoughts that you would be better off or of hurting yourself in some way: not at all Total score: 0 Depression Screening Interpretation: Negative Depression Screening Done: Yes Source: Developed by Drs. Josiah Garcia, Ramonita James, Jasiel Elam and colleagues, with an educational devin from [employer]. Thrive Questionnaire Date Thrive assessed: 08/05/23 I am a: Patient What is your living situation today?: I have a steady place to live Within the past 12 months, did the food you bought not last and you didn't have the money to get more?: Never true Within the past 12 months, did you worry whether your food would run out before you got money to buy more?: Never true Do you have trouble paying for medicines?: No Do you have trouble getting transportation to medical appointments?: No Do you have trouble paying your heating and electricity bill?: No Do you have trouble taking care of your child, family member or friend?: No Do you have trouble with day-to-day activities such as bathing, preparing meals, shopping, managing finances, etc.?: No Are you currently unemployed and looking for a job?: No Are you interested in more education?: No Please select the resources that you would like help with: None Currently or been in a relationship where the following occur: no concerns reported THRIVE Score: 0 LILIYA-7 AMB Questionnaire LILIYA-7 Date LILIYA - 7 assessed: 08/05/23 Feeling nervous, anxious, or on edge: 0 = Not at all Not being able to stop or control worryin = Not at all Worrying too much about different things: 0 = Not at all Trouble relaxin = Not at all Being so restless that it is hard to sit still: 0 = Not at all Becoming easily annoyed or irritable: 0 = Not at all Feeling afraid as if something awful might happen: 0 = Not at all Total LILIYA-7 score (0-4 normal; 5-9 mild; 10-14 moderate; 15-21 severe): 0 Source: Developed by Drs. Josiah Gracia, Ramonita James, Jasiel Elam and colleagues, with an educational devin from [employer]. Review of Systems Const All systems reviewed & are unremarkable except as noted in HPI and below Reports no additional complaints Eyes Reports no additional complaints ENT Reports no additional complaints Card Reports no additional complaints Resp Reports no additional complaints GI Reports no additional complaints Reports no additional complaints Physical exam (Primary Care) Vital Signs: Last Vital Signs Pulse 68 08/05/23 08:26 BP 118/76 08/05/23 08:26 Pulse Ox 98 08/05/23 08:26 Oxygen Delivery Method Room Air 08/05/23 08:26 BMI result Body Mass Index 41.8 Tobacco/Smoking Status: Tobacco use Status Tobacco use date assessed 08/05/23 08/05/23 08:31 Patient Tobacco Use Status Never used Tobacco 08/05/23 08:31 e-Cigarette/Vaping Use Never Used 08/05/23 08:25 Depression Screening Interpretation: Negative Thrive Assessment: Date of Thrive Assessment Date Thrive assessed 01/28/23 08/05/23 08:25 Currently or been in a relationship where the following occur: no concerns reported Const General: no acute distress Eyes General: appearance normal, both eyes and all related structures Neck Neck: Yes supple Resp Effort & Inspection: normal respiratory effort Auscultation: clear to auscultation bilaterally Cardio Rhythm: regular rhythm Heart sounds: S1 normal heart sound present, S2 normal heart sound present and Murmur heart sound present systolic II/ Assessment and Plan Assessment & Plan (1) Heart murmur: Comment: Echo 04/27 nl EF, HEAVY CALCIFICATIONS ON AORTIC AND MITRAL VALVES Code(s): R01.1 - Cardiac murmur, unspecified (2) Hyperlipidemia: Code(s): E78.5 - Hyperlipidemia, unspecified Plan: Continue low-cholesterol diet increase physical activity and patient will continue weight watchers. Patient will add fish oil supplement. She will follow-up in 6 months for physical with a fasting labs before (3) Hypothyroid: Comment: taking levothyroxine Code(s): E03.9 - Hypothyroidism, unspecified Plan: Continue levothyroxine (4) Morbid obesity with BMI of 40.0-44.9, adult: Code(s): E66.01 - Morbid (severe) obesity due to excess calories; Z68.41 - Body mass index [BMI] 40.0-44.9, adult Plan: Continue weight loss program Orders: Orders Comprehensive [place]. Panel Fast 6 Months E03.9 - Hypothyroidism, unspecified, E78.5 - Hyperlipidemia, unspecified, Z00.00 - Encounter for general adult medical examination without abnormal findings Vitamin D 25-OH Total 6 Months E03.9 - Hypothyroidism, unspecified, E78.5 - Hyperlipidemia, unspecified, Z00.00 - Encounter for general adult medical examination without abnormal findings Lipid Panel 6 Months E03.9 - Hypothyroidism, unspecified, E78.5 - Hyperlipidemia, unspecified, Z00.00 - Encounter for general adult medical examination without abnormal findings Complete Blood Count Auto Diff 6 Months E03.9 - Hypothyroidism, unspecified, E78.5 - Hyperlipidemia, unspecified, Z00.00 - Encounter for general adult medical examination without abnormal findings TSH reflex Free T4 6 Months E03.9 - Hypothyroidism, unspecified, E78.5 - Hyperlipidemia, unspecified, Z00.00 - Encounter for general adult medical examination without abnormal findings Coding Level of Care Code Est Pt Level 4 (70656) Diagnoses Heart murmur R01.1 Hyperlipidemia E78.5 Hypothyroid E03.9 Morbid obesity with BMI of 40.0-44.9, adult E66.01; Z68.41
[2023-08-05 08:26] VITALS: BP 118/76; PULSE 68; O2SAT 98; BMI 41.8
== END 2023-08-05 09:27 | disposition home or self-care (01) ==
PROVIDERS: PCP Internal Medicine; Visit Provider Internal Medicine
DX: R01.1 Cardiac murmur, unspecified (principal); E66.01 Morbid (severe) obesity due to excess calories; Z68.41 Body mass index [BMI] 40.0-44.9, adult; E78.5 Hyperlipidemia, unspecified; E03.9 Hypothyroidism, unspecified
CPT/HCPCS: 99214

== ENCOUNTER 2023-12-28 13:09 | Outpatient (REF) | payer OTHER, SELFPAY ==
[2023-12-28 18:21] LABS: MANUAL DIFF FLAG NO
[2023-12-28 18:29] LABS: Basophils Percent Auto 0.4 % (0-2); Eosinophils Absolute Auto 0.1 X10*3/uL (0.0-0.4); Eosinophils Percent Auto 1.3 % (0-4); Hematocrit 40.5 % (37.0-47.0); Imm Gran Abs Auto 0.01 X10*3/uL (0.00-0.03); Imm Gran Pct Auto 0.1 % (0.0-0.4); Lymphocytes Percent Auto 29.4 % (20-40); Mean Corpuscular HGB Conc 32.1 g/dl (31.0-35.0); Mean Corpuscular Hemoglobin 30.4 pg (27.0-33.0); Mean Corpuscular Volume 94.8 fL (80.0-98.0); Mean Platelet Volume 11.7 fL (9.4-12.3); Monocytes Absolute Auto 0.5 X10*3/uL (0.1-1.2); Monocytes Percent Auto 7.2 % (2-11); Neutrophils Absolute Auto 4.3 x10*3/uL (2.0-8.3); Neutrophils Percent Auto 61.6 % (45-73); Platelet Count 246 X10*3/uL (160-400); Red Blood Count 4.27 X10*6/uL (4.20-5.50); Red Cell Distribution Width 13.6 % (11.0-16.0); White Blood Count 6.9 X10*3/uL (4.8-10.8)
[2023-12-28 18:53] LABS: Alanine Aminotransferase 13 U/L (0-31); Albumin Level 3.8 g/dL (3.5-5.0); Alkaline Phosphatase 96 U/L (39-117); Anion Gap 12 (12-20); Aspartate Amino Transferase 19 U/L (5-31); Bilirubin Total 0.5 mg/dL (0.0-1.0); Blood Urea Nitrogen 22 mg/dL (9-16); Calcium 9.7 mg/dL (8.4-10.2); Carbon Dioxide 27 mmol/L (22-29); Chloride 107 mmol/L (96-108); Cholesterol 187 mg/dL (<200); Estimated Glomerular Filt Rate > 60; Glucose Fasting 86 mg/dL (60-99); HDL Cholesterol 43 mg/dL (>40); LDL Cholesterol Calculated 129 mg/dL (<100); Potassium 4.8 mmol/L (3.3-5.1); Sodium 141 mmol/L (135-145); Triglycerides 78 mg/dL (<150)
[2023-12-28 18:58] LABS: TSH reflex Free T4 2.58 uIU/mL (0.32-4.0); Vitamin D 25-OH Total 35.4 ng/mL (>30)
== END 2023-12-28 13:10 | disposition home or self-care (01) ==
LOC: HO.HMGCLDS 13:09
PROVIDERS: PCP Internal Medicine; Visit Provider Internal Medicine
DX: Z00.00 Encounter for general adult medical examination without abnormal findings (principal); E03.9 Hypothyroidism, unspecified; E78.5 Hyperlipidemia, unspecified
CPT/HCPCS: 36415; 80053; 80061; 82306; 84443; 85025

== ENCOUNTER 2024-01-19 10:07 | Outpatient (REF) | payer OTHER, SELFPAY | END 2024-01-19 10:08 | disposition home or self-care (01) | LOC: HO.MAMMO 10:07 | PROVIDERS: PCP Internal Medicine; Visit Provider Internal Medicine | DX: Z12.31 Encounter for screening mammogram for malignant neoplasm of breast (principal) | CPT/HCPCS: 77063; 77067 ==

== ENCOUNTER → 2024-01-19 10:15 | Outpatient (BNV) | payer OTHER, SELFPAY | PROVIDERS: PCP Internal Medicine; Visit Provider Radiology Diagnostic Radiology | DX: Z12.31 Encounter for screening mammogram for malignant neoplasm of breast (principal) | CPT/HCPCS: 77063; 77067 ==

== ENCOUNTER 2024-02-03 10:22 | Outpatient (AMB) | payer OTHER, SELFPAY ==
[2024-02-03 10:47] VITALS: BP 126/80; PULSE 59; O2SAT 98; BMI 36.3
--- NOTE | 2024-02-03 10:47 | A.OFFPC_ITS ---
Vital Signs 02/03/24 10:47 Height 5 ft 3 in Weight 205 lb BMI 36.3 BP 126/80 Blood Pressure Location Rt brachial Position Sitting Pulse 59 Pulse Source Pulse Oximeter Pulse Oximetry (%) 98 Oxygen Delivery Method Room Air Intake Visit Reasons: pe Intake Note: Pt is here today for PE. Allergies No Known Allergies Allergy (Verified 02/03/24 10:47) Medication List - Last Reconciled 02/03/24 by Hailey Vega MD cholecalciferol (vitamin D3) 25 mcg PO DAILY levothyroxine 50 mcg PO DAILY lutein 6 mg PO DAILY Tobacco use date assessed: 02/03/24 Dental Screening Dental Screen Date: 08/05/23 HPI pe HPI Details Patient presents for physical PFSH Medical History (Updated 02/03/24 @ 13:12 by Hailey Vega MD) Migraine Annual physical exam Position dependent micturition Overweight Hypothyroid Surgical History H/O colonoscopy History of endometrial ablation Family History Mother No problems noted. Father No problems noted. 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 1. Little interest or pleasure in doing things: not at all 2. Feeling down, depressed, or hopeless: not at all 3. Trouble falling or staying asleep, or sleeping too much: not at all 4. Feeling tired or having little energy: not at all 5. Poor appetite or overeating: not at all 6. Feeling bad about yourself - or that you are a failure or have let yourself or your family down: not at all 7. Trouble concentrating on things, such as reading the newspaper or watching television: not at all 8. Moving or speaking so slowly that other people could have noticed. Or the opposite - being so fidgety or restless that you have been moving around a lot more than usual: not at all 9. Thoughts that you would be better off or of hurting yourself in some way: not at all Total score: 0 Depression Screening Interpretation: Negative Depression Screening Done: Yes Source: Developed by Drs. Josiah Garcia, Ramonita James, Jasiel Elam and colleagues, with an educational devin from [email or web address]. Thrive Questionnaire Date Thrive assessed: 02/03/24 I am a: Patient What is your living situation today?: I have a steady place to live Within the past 12 months, did the food you bought not last and you didn't have the money to get more?: Never true Within the past 12 months, did you worry whether your food would run out before you got money to buy more?: Never true Do you have trouble paying for medicines?: No Do you have trouble getting transportation to medical appointments?: No Do you have trouble paying your heating and electricity bill?: No Do you have trouble taking care of your child, family member or friend?: No Do you have trouble with day-to-day activities such as bathing, preparing meals, shopping, managing finances, etc.?: No Are you currently unemployed and looking for a job?: No Are you interested in more education?: No Please select the resources that you would like help with: Housing/[facility] Currently or been in a relationship where the following occur: No concerns reported THRIVE Score: 0 AUDIT C Alcohol Use Questionnaire (AUDIT-C) 1. How often do you have a drink containing alcohol?: Never 3. How often do you have six or more drinks on one occasion?: Never Total Score: 0 LILIYA-7 AMB Questionnaire LILIYA-7 Date LILIYA - 7 assessed: 02/03/24 Feeling nervous, anxious, or on edge: 0 = Not at all Not being able to stop or control worryin = Not at all Worrying too much about different things: 0 = Not at all Trouble relaxin = Not at all Being so restless that it is hard to sit still: 0 = Not at all Becoming easily annoyed or irritable: 0 = Not at all Feeling afraid as if something awful might happen: 0 = Not at all Total LILIYA-7 score (0-4 normal; 5-9 mild; 10-14 moderate; 15-21 severe): 0 Source: Developed by Drs. Josiah Garcia, Ramonita James, Jasiel Elam and colleagues, with an educational devin from [email or web address]. LILIYA-7 Assessment Billing LILIYA-7 Assessment Tool: LILIYA-7 Assessment 01164 Review of Systems Const All systems reviewed & are unremarkable except as noted in HPI and below Reports no additional complaints Eyes Reports no additional complaints ENT Reports no additional complaints Card Reports no additional complaints Resp Reports no additional complaints GI Reports no additional complaints Reports no additional complaints Physical exam (Primary Care) Vital Signs: Last Vital Signs Pulse 59 02/03/24 10:47 BP 126/80 02/03/24 10:47 Pulse Ox 98 02/03/24 10:47 Oxygen Delivery Method Room Air 02/03/24 10:47 BMI result Body Mass Index 36.3 Tobacco/Smoking Status: Tobacco use Status Tobacco use date assessed 02/03/24 02/03/24 10:47 Patient Tobacco Use Status Never used Tobacco 02/03/24 10:47 e-Cigarette/Vaping Use Never Used 02/03/24 10:47 PHQ-9: PHQ-9 Score PHQ-9: Total score 0 02/03/24 10:48 Depression Screening Interpretation: Negative Thrive Assessment: Date of Thrive Assessment Date Thrive assessed 02/03/24 02/03/24 10:48 Currently or been in a relationship where the following occur: No concerns reported Const General: no acute distress HENLA Head: Yes normal to inspection Ears: hearing grossly normal bilaterally General nose exam: Normal external nose present Face and sinus: Yes normal facial exam Eyes General: appearance normal, both eyes and all related structures Neck Neck: Yes no lymphadenopathy and Yes supple Resp Effort & Inspection: normal respiratory effort Auscultation: clear to auscultation bilaterally Cardio Rhythm: regular rhythm Heart sounds: S1 normal heart sound present and S2 normal heart sound present GI Inspection: Yes normal to inspection Palpation (GI): Soft to palpation Percussion: Yes normal to percussion Auscultation: normal bowel sounds Assessment and Plan Assessment & Plan (1) Morbid obesity with BMI of 40.0-44.9, adult: Comment: In weight watchers lost 30 lb in 2023 Code(s): E66.01 - Morbid (severe) obesity due to excess calories; Z68.41 - Body mass index [BMI] 40.0-44.9, adult Plan: Continue weight watchers, increase physical activity decrease caloric intake (2) Hyperlipidemia: Comment: Diet-controlled Code(s): E78.5 - Hyperlipidemia, unspecified Plan: Continue low-cholesterol diet (3) Annual physical exam: Code(s): Z00.00 - Encounter for general adult medical examination without abnormal findings Plan: Well-balanced diet regular physical activity discussed with the patient she is up-to-date with the mammogram Pap smear and colonoscopy, return in 1 year with a fasting labs before (4) Normal colonoscopy: Comment: colonoscopy normal 03/2020 (5) Postmenopausal bleeding: Comment: f/u [employer] Dr. Rascon, s/p hysteroscopy 10/2020 Code(s): N95.0 - Postmenopausal bleeding (6) Hypothyroid: Comment: taking levothyroxine Code(s): E03.9 - Hypothyroidism, unspecified Plan: Continue levothyroxine Orders: Orders Complete Blood Count Auto Diff 1 Year E03.9 - Hypothyroidism, unspecified, E78.5 - Hyperlipidemia, unspecified, Z00.00 - Encounter for general adult medical examination without abnormal findings Comprehensive [place]. Panel Fast 1 Year E03.9 - Hypothyroidism, unspecified, E78.5 - Hyperlipidemia, unspecified, Z00.00 - Encounter for general adult medical examination without abnormal findings UA w Microscopic 1 Year E03.9 - Hypothyroidism, unspecified, E78.5 - Hyperlipidemia, unspecified, Z00.00 - Encounter for general adult medical examination without abnormal findings Lipid Panel 1 Year E03.9 - Hypothyroidism, unspecified, E78.5 - Hyperlipidemia, unspecified, Z00.00 - Encounter for general adult medical examination without abnormal findings TSH reflex Free T4 1 Year E03.9 - Hypothyroidism, unspecified, E78.5 - Hyperlipidemia, unspecified, Z00.00 - Encounter for general adult medical examination without abnormal findings Vitamin D 25-OH Total 1 Year E03.9 - Hypothyroidism, unspecified, E78.5 - Hyperlipidemia, unspecified, Z00.00 - Encounter for general adult medical examination without abnormal findings Coding Level of Care Code Est Pt Prev Care 40-64y(48105) Diagnoses Morbid obesity with BMI of 40.0-44.9, adult E66.01; Z68.41 Hyperlipidemia E78.5 Annual physical exam Z00.00 Normal colonoscopy Postmenopausal bleeding N95.0 Hypothyroid E03.9 Additional Codes LILIYA-7 Assessment Billing - LILIYA-7 Assessment Tool: LILIYA-7 Assessment 77706 ([id number])
== END 2024-02-03 11:27 | disposition home or self-care (01) ==
PROVIDERS: PCP Internal Medicine; Visit Provider Internal Medicine
DX: Z00.00 Encounter for general adult medical examination without abnormal findings (principal); E66.01 Morbid (severe) obesity due to excess calories; Z68.41 Body mass index [BMI] 40.0-44.9, adult; E78.5 Hyperlipidemia, unspecified; N95.0 Postmenopausal bleeding; E03.9 Hypothyroidism, unspecified
CPT/HCPCS: 99396

== ENCOUNTER 2024-04-28 13:03 | Outpatient (AMB) | payer OTHER, SELFPAY ==
--- NOTE | 2024-04-28 13:10 | A.OFFVIS_ITS ---
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 She is doing well with no concerns. Attempting to eat a healthy diet (weight watcher) with calcium and vitamin D and stays active with exercise. Currently sexually active. Denies any vaginal dryness or irritation. Last pap smear; 2019 . Last mammogram; 2023. Colonoscopy is UTD. Denies any family history of ovarian or colon cancer. FH breast cancer-sister. PFSH Medical History Migraine Annual physical exam Position dependent micturition Overweight Hypothyroid Surgical History H/O colonoscopy History of endometrial ablation Family History (Updated 04/28/24 @ 13:47 by Leti Matthew CNM) Mother No problems noted. Father No problems noted. 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 Cognitive needs: No Hearing needs: No Vision needs: Yes Female Reproductive History Menstrual Age of Menarche: 15 Menopause type: natural Total pregnancies: 2 Full term: 2 Number of Living Children: 2 Date of last pap smear: 01/05/20 (neg pap and hpv) Date of Mammogram: 01/19/24 (Birad 1) Review of Systems Const All systems reviewed & are unremarkable except as noted in HPI and below Reports as per HPI Eyes Reports no additional complaints ENT Reports no additional complaints Card Reports no additional complaints Resp Reports no additional complaints GI Reports as per HPI and Reports no additional complaints Reports as per HPI Musc Reports no additional complaints Skin/Breast Reports as per HPI Neuro Reports no additional complaints Psych Reports no additional complaints Endo Reports no additional complaints Jairon/Lymph Reports no additional complaints Aller/Immun Reports no additional complaints Physical Exam Vital Signs: Last Vital Signs BP 114/72 04/28/24 13:12 BMI result Body Mass Index 35.2 Const General: cooperative, healthy appearing, no acute distress, well developed and alert Orientation/consciousness: patient oriented x3 HEENT Head: Yes normal to inspection Eyes General: appearance normal, both eyes and all related structures Neck Neck: Yes normal visual inspection Thyroid: Thyroid normal Chest Chest palpation & inspection: normal inspection of the chest and other (no puckering, dimpling, peau de orange, retraction, discharge, masses) Breast/axilla inspection: normal inspection of the breasts Breast/axilla palpation: normal palpation of the breasts Resp Effort & Inspection: normal respiratory effort GI Inspection: Yes normal to inspection Palpation (GI): Soft to palpation Rectal Exam - Female: deferred General: Yes bladder normal to palpation External Female Exam: normal external appearance and normal appearance of the urethra Speculum Exam - Vagina: normal appearance of the vagina, normal palpation, normal vaginal discharge and vagina atrophic Speculum Exam - Cervix: normal appearance of the cervix and normal palpation Bimanual exam- vagina & uterus: normal bimanual exam, normal palpation, uterine size normal, bladder normal to palpation, normal palpation and non-tender Bimanual Exam- Adnexa, other: Other (Pelvic fullness to the right side) Skin General skin exam: no rashes or lesions noted Rashes: no rashes Neuro General: patient oriented x3 Cognition (Neuro): normal cognition Extrem General: Yes normal to inspection Psych Attitude: cooperative Thought process: Normal thought process present Assessment & Plan Assessment & Plan (1) Encounter for well woman exam with routine gynecological exam: Code(s): Z01.419 - Encounter for gynecological examination (general) (routine) without abnormal findings Category: Medical (2) Pelvic fullness: Code(s): R19.00 - Intra-abdominal and pelvic swelling, mass and lump, unspecified site Category: Medical Plan Discussed: Current recommendations for pap smears per ASCCP guidelines. Breast awareness, periodic self breast exams and yearly mammogram. Maintain a healthy lifestyle, well balanced diet including Calcium 1,200 mg and Vitamin D 600 IU daily, and routine exercise. Pelvic ultrasound due to fullness noted reviewed with patient maybe just a loop of bowel will need to evaluate to determine. BRCA testing offered, she wants to think about it literature provided advised to notify me by patient portal if she wants a referral. Contact the office with any postmenopausal bleeding. Patient verbalizes understanding and agrees to the plan of care. She was given opportunity to ask questions and all questions were answered to the best of my ability. RTO in 1 year for annual rotor assembler exam. This note is constructed using voice recognition software. While every effort has been made to ensure accuracy, heavy duty press operator errors may have been included. Orders: Orders US pelvic and transvaginal Today R19.00 - Intra-abdominal and pelvic swelling, mass and lump, unspecified site Coding Level of Care Code Est Pt Prev Care 40-64y(39384) Diagnoses Encounter for well woman exam with routine gynecological exam Z01.419 Pelvic fullness R19.00
[2024-04-28 13:12] VITALS: BP 114/72; BMI 35.2
== END 2024-04-28 14:01 | disposition home or self-care (01) ==
PROVIDERS: PCP Internal Medicine; Visit Provider Advanced Practice Midwife
DX: Z01.419 Encounter for gynecological examination (general) (routine) without abnormal findings (principal); R19.00 Intra-abdominal and pelvic swelling, mass and lump, unspecified site
CPT/HCPCS: 99396

== ENCOUNTER → 2024-04-28 13:03 | Outpatient (BNVA) | payer OTHER, SELFPAY | PROVIDERS: PCP Internal Medicine; Visit Provider Advanced Practice Midwife ==

== ENCOUNTER 2024-05-04 13:52 | Outpatient (REF) | payer OTHER, SELFPAY | END 2024-05-04 13:53 | disposition home or self-care (01) | LOC: HO.HMGCX 13:52 | PROVIDERS: PCP Internal Medicine; Visit Provider Advanced Practice Midwife | DX: R19.00 Intra-abdominal and pelvic swelling, mass and lump, unspecified site (principal) | CPT/HCPCS: 76830; 76856 ==

== ENCOUNTER → 2024-05-04 13:58 | Outpatient (BNV) | payer OTHER, SELFPAY | PROVIDERS: PCP Internal Medicine; Visit Provider Radiology Diagnostic Radiology | DX: D25.9 Leiomyoma of uterus, unspecified (principal); N83.291 Other ovarian cyst, right side | CPT/HCPCS: 76830; 76856 ==

== ENCOUNTER → 2024-06-21 15:34 | Outpatient (AMB) | payer OTHER, SELFPAY ==
--- NOTE | 2024-06-21 15:34 | A.OFFVIS_ITS ---
Intake Visit Reasons: TV US results Intake Note: cell # [phone] Online Journalist: Online Journalist Present Allergies No Known Allergies Allergy (Verified 06/21/24 15:35) Is last menstrual period known: Yes HPI Comments Details: [facility] visit 15:40-15:55. I spent 15 minutes speaking with the patient on the phone plus an additional 5 minutes reviewing the chart and 5 minutes updating the medical record for a total of 25minutes. Patient presents via phone to discuss: Ultrasound findings, due to history of pelvic fullness with the exam. She denies any postmenopausal bleeding. She denies any pelvic pain. [facility] Medical History (Updated 06/21/24 @ 16:06 by Leti Matthew CNM) Endometrial thickening on ultrasound Ovarian cyst Migraine Annual physical exam Position dependent micturition Overweight Hypothyroid Surgical History H/O colonoscopy History of endometrial ablation Family History (Updated 04/28/24 @ 13:47 by Leti Matthew CNM) Mother No problems noted. Father No problems noted. 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 Cognitive needs: No Hearing needs: No Vision needs: Yes Female Reproductive History Menstrual Age of Menarche: 15 Review of Systems Const All systems reviewed & are unremarkable except as noted in HPI and below Endo Reports no additional complaints Physical Exam Const General: cooperative, healthy appearing and no acute distress Psych Appearance: well kempt Attitude: cooperative Thought process: Normal thought process present Telehealth Telehealth Telehealth Platform: [employer] Location of provider rendering services: practice address Location of patient: other Patient Identification confirmed using: Name, : Yes Telehealth method: video Patient verbally consented to treatment: Yes Patient verbally consented to billing insurance company: Yes Patient informed of any privacy concerns related to visit: Yes Results Reviewed [place] [facility] [place] [facility] [place] [address] Ultrasound Report Signed Patient: Amarilis Spain MR#: [id number] : 1965 Acct:[id number] Age/Sex: 59 / F ADM Date: 05/04/24 Loc: HO.[facility]GCX Attending Dr: Leti Matthew CNM Ordering Physician: Leti Matthew CNM Date of Service: 05/04/24 Procedure(s): US pelvic and transvaginal Accession Number(s): [id number] cc: Hailey Vega MD; Leti Matthew CNM~ EXAMINATION: US PELVIS CLINICAL INFORMATION: COMPARISON: None available. TECHNIQUE: Ultrasound of the pelvis is performed using both transabdominal and transvaginal transducers along with Doppler. Transvaginal imaging is performed due to inadequate visualization transabdominally. FINDINGS: Uterus: The uterus is anteverted and measures 6.9 x 4.3 x 5.0 cm. Normal-appearing cervix. Uterine volume estimated at 78 cc. The double wall endometrial thickness is approximately 7 mm. This is at the upper limits of normal for postmenopausal patient. 7 mm subendometrial cystic focus present in the mid uterine segment, nonspecific. No cervical abnormality. The uterus is smooth in contour. There is a ventral fundal fibroid measuring 1.7 x 1.7 x 1.9 cm. There is a slightly more inferior dorsal fundal fibroid measuring 1.5 x 0.9 x 1.4 cm. These could potentially be submucosal given appearance. No additional fibroids. Cervix appears normal. Adnexa: Both ovaries are visualized. There is normal color flow to the adnexa. There is no ovarian torsion. There is trace free pelvic fluid, nonspecific. No solid or suspicious adnexal masses. Right ovary measures 8.4 x 8.0 x 8.0 cm. Volume = 278 mL. There is a large simple ovarian cyst measuring 7.6 x 7.4 x 7.3 cm. Right ovary otherwise sonographically normal. Left ovary measures 1.4 x 1.0 x 1.6 cm. Estimated volume is 1.1 mL. It is sonographically normal without cyst or mass. Trace fluid in the cul-de-sac, nonspecific. US/US pelvic and transvaginal IMPRESSION: 1. There are 2 fundal fibroid tumors of the uterus, the larger measuring 1.7 x 1.7 x 1.9 cm. These could potentially be submucosal given appearance. 2. Borderline endometrial thickening of 7 mm. Of note, this only appears at the upper limits of normal in the region abutting fibroids. This may be artifact secondary to mild mass effect secondary to submucosal fundal fibroids. Alternatively, findings could represent top limits of normal versus hyperplasia especially given the presence of a subendometrial cystic focus measuring 7 mm in the mid endometrium. 3. Large simple cyst in the right ovary measuring 7.6 x 7.4 x 7.3 cm. Cyst is visualized in entirety and has no complicating features (i.e. mural nodules, septations, internal echoes). Consider follow-up 3-6 month ultrasound, or conversely MRI and/or surgical consultation. 4. Trace fluid in the cul-de-sac, nonspecific, but should be considered abnormal in a postmenopausal patient. Electronically signed by: Tiburcio Santos MD 06/21/2024 11:44 AM [facility] [place] By: Tiburcio Santos MD Signed By: <Electronically signed by Tiburcio Santos MD in OV> 06/21/24 1144 DD/ 1358 TD/TT: 05/04/24 1425 Manufacturing Process Engineer: Assessment & Plan Assessment & Plan (1) Ovarian cyst: Code(s): N83.209 - Unspecified ovarian cyst, unspecified side Category: Medical Qualifiers: Laterality: right Qualified Code(s): N83.201 - Unspecified ovarian cyst, right side (2) Endometrial thickening on ultrasound: Code(s): R93.89 - Abnormal findings on diagnostic imaging of other specified body structures Category: Medical (3) Encounter to discuss test results: Code(s): Z71.2 - Person consulting for explanation of examination or test findings Plan Discussed: Ultrasound findings indicated a large right ovarian cyst 7.6 cm. Additionally endometrial lining is 7 mm with some endometrial cystic focus present. Recommendations is to have an endometrial biopsy preferably hysteroscopy approach due to the cystic lesions which could imply endometrial polyps requiring removal. Recommend a consult with Dr. Sharma to discuss plan of care. Labs for to tumor markers. Counseled regarding findings of: Large ovarian cyst, some develop into premalignant or malignant tumors. Limitations of testing for diagnostic purposes. Further monitoring and evaluation is recommended with a pelvic CT scan, at [facility]-due to the delay in readings, lab work Ca-125, Carbohydrate Antigen 19-9, & Carcinoembryonic Antigen), creatinine and labs will be ordered and referral to [facility] or general gynecology for MD care if indicated for possible surgical consult. Pelvic warnings reviewed if any sudden severe pain or pain that is increasing (ovarian torsion symptoms) will need to seek medical emergency care to the ED. Follow up for test results. All of her questions and concerns were addressed to the best of my ability and shared decision making. She is agreeable to the plan of care. This note is constructed using voice recognition software. While every effort has been made to ensure accuracy, motorboat mechanic inboard/outboard errors may have been included. Orders: Orders CA-125 Today N83.299 - Other ovarian cyst, unspecified side Creatinine Today N83.201 - Unspecified ovarian cyst, right side CT abdomen pelvis wo/w IV con Today N83.209 - Unspecified ovarian cyst, unspecified side, R93.89 - Abnormal findings on diagnostic imaging of other specified body structures Carbohydrate Antigen 19-9 Today N83.209 - Unspecified ovarian cyst, unspecified side Carcinoembryonic Antigen Today N83.209 - Unspecified ovarian cyst, unspecified side Blood Urea Nitrogen Today N83.201 - Unspecified ovarian cyst, right side Coding Level of Care Code Est Pt Level 3 (54000) Diagnoses Cyst of right ovary N83.201 Laterality: right Endometrial thickening on ultrasound R93.89 Encounter to discuss test results Z71.2
== END ==
LOC: HO.HWS 15:34
PROVIDERS: PCP Internal Medicine; Visit Provider Advanced Practice Midwife
DX: N83.201 Unspecified ovarian cyst, right side (principal); R93.89 Abnormal findings on diagnostic imaging of other specified body structures; Z71.2 Person consulting for explanation of examination or test findings
CPT/HCPCS: 99213

== ENCOUNTER 2024-06-22 08:05 | Outpatient (REF) | payer OTHER, SELFPAY ==
[2024-06-22 08:46] LABS: Blood Urea Nitrogen 17 mg/dL (9-16); Estimated Glomerular Filt Rate > 60
[2024-06-24 09:19] LABS: CA-125 5 U/mL (<35); Carbohydrate Antigen 19-9 5 U/mL (<34)
== END 2024-06-22 08:06 | disposition home or self-care (01) ==
LOC: HO.LAB 08:05
PROVIDERS: PCP Internal Medicine; Visit Provider Advanced Practice Midwife
DX: N83.299 Other ovarian cyst, unspecified side (principal); N83.209 Unspecified ovarian cyst, unspecified side; N83.201 Unspecified ovarian cyst, right side
CPT/HCPCS: 36415; 82378; 82565; 84520; 86301; 86304

== ENCOUNTER 2024-06-23 09:23 | Outpatient (REF) | payer OTHER, SELFPAY | END 2024-06-23 09:24 | disposition home or self-care (01) | LOC: HO.LNP 09:23 | PROVIDERS: PCP Internal Medicine; Visit Provider Obstetrics & Gynecology | DX: R93.89 Abnormal findings on diagnostic imaging of other specified body structures (principal) | CPT/HCPCS: 58100; 88305 ==

== ENCOUNTER 2024-06-23 09:23 | Outpatient (AMB) | payer OTHER, SELFPAY ==
--- NOTE | 2024-06-23 09:24 | MHC.OFFVIS ---
Intake Visit Reasons: Hysteroscopy consult Water Resource Project Manager: Water Resource Project Manager Present (Jennifer) Accompanied by: Self / Same As Patient Allergies No Known Allergies Allergy (Verified 06/23/24 09:24) HPI Comments Details: Presenting referred from Leti Matthew CNM regarding abnormal pelvic ultrasound, done on 05/04/2024 and read on 06/21/2024 which showed the following: IMPRESSION: 1. There are 2 fundal fibroid tumors of the uterus, the larger measuring 1.7 x 1.7 x 1.9 cm. These could potentially be submucosal given appearance. 2. Borderline endometrial thickening of 7 mm. Of note, this only appears at the upper limits of normal in the region abutting fibroids. This may be artifact secondary to mild mass effect secondary to submucosal fundal fibroids. Alternatively, findings could represent top limits of normal versus hyperplasia especially given the presence of a subendometrial cystic focus measuring 7 mm in the mid endometrium. 3. Large simple cyst in the right ovary measuring 7.6 x 7.4 x 7.3 cm. Cyst is visualized in entirety and has no complicating features (i.e. mural nodules, septations, internal echoes). Consider follow-up 3-6 month ultrasound, or conversely MRI and/or surgical consultation. 4. Trace fluid in the cul-de-sac, nonspecific, but should be considered abnormal in a postmenopausal patient. Last co testing was in negative in 01/22 The patient has no history of postmenopausal bleeding PFSH Medical History Endometrial thickening on ultrasound Ovarian cyst Migraine Annual physical exam Position dependent micturition Overweight Hypothyroid Surgical History H/O colonoscopy History of endometrial ablation Family History Mother No problems noted. Father No problems noted. 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 Cognitive needs: No Hearing needs: No Vision needs: Yes Female Reproductive History Menstrual Age of Menarche: 15 Review of Systems Const All systems reviewed & are unremarkable except as noted in HPI and below Reports as per HPI and Reports no additional complaints GI Reports no additional complaints Reports no additional complaints Office Procedures Endometrial Biopsy Details: The patient was counseled regarding the indication and benefits of endometrial sampling to rule out endometrial pathology including not limited to endometrial hyperplasia or endometrial cancer and others; The alternatives (Either do nothing vs. hysteroscopy D&C) & the risks were discussed with the patient including but not limited: pain, uterine perforation, bleeding, infection, possible injury to bladder, bowel, ureter, possible need for blood transfusion with all its possible risks. The patient verbalized understanding all questions answered and signed consent. The patient was placed into the dorsal lithotomy position; a speculum was inserted in the vagina. Using aseptic technique for the procedure, the cervix was cleansed with Betadine. The anterior lip of the cervix was grasped with a single tooth tenaculum. The uterus was sounded to 6 cm with a 4 mm Pipelle was used. Tissues samples were obtained and placed in formalin, in a patient labeled container and sent to the pathology department. At the end of the procedure, there was minimal bleeding noted The patient tolerated the procedure well and was discharged in good condition with the following instructions: Nothing in the vagina until the bleeding stops. No sex until the bleeding stops, to call if any of the following occurs: fever (>100.4), flu-like symptoms, abdominal pain, heavy bleeding, four smelling vaginal discharge. The patient was instructed to schedule a Follow up appointment in 2 weeks to discuss pathology results of the biopsy and treatment options. This note was generated with a voice recognition program. Some errors may have been overlooked during the review of this note. Sometimes these errors may affect the content or meaning of a given sentence. 26435-Hyfopjrrsto Biopsy Assessment & Plan Assessment & Plan (1) Ovarian cyst: Code(s): N83.209 - Unspecified ovarian cyst, unspecified side Category: Medical Qualifiers: Laterality: right Qualified Code(s): N83.201 - Unspecified ovarian cyst, right side Plan: Discussed with the patient the finding on pelvic ultrasound showing a large ovarian cyst. Possible causes discussed with the patient include but not limited to benign, premalignant or malignant ovarian pathology. Ovarian cancer tumor markers including CA 125, CA 19-9, CEA ordered. CT scan of abdomen and pelvis ordered. Instructions given the patient to schedule a follow-up appointment within 2 weeks. Signs and symptoms of ovarian ruptured and or torsion were discussed with the patient, she is to call or go to emergency room in case of pelvic pain and /or noisy or vomiting (2) Endometrial thickening on ultrasound: Comment: History of endometrial ablation Code(s): R93.89 - Abnormal findings on diagnostic imaging of other specified body structures Category: Medical Plan: Discussed with the patient endometrial thickness above 4 mm in menopause , the differential diagnosis of a thickened endometrium includes but not limited to endometrial polyp, hyperplasia or carcinoma. Explained to the patient that endometrial each thickness is less predictive of endometrial neoplasia in asymptomatic patients, i.e. those without postmenopausal uterine bleeding. The sensitivity and specificity for detecting endometrial carcinoma at an endometrial thickness of >= 5mm was 83 and 72 percent, respectively; this is lower than in patients with bleeding. Studies have shown that postmenopausal patients without uterine bleeding who had an endometrial thickness >11 mm had an endometrial carcinoma risk of 6.7 percent; this risk is similar to postmenopausal patients with bleeding and an endometrial thickness >5 mm. Recommended endometrial sampling to rule endometrial pathology via either office endometrial biopsy or diagnostic hysteroscopy/D&C with possible polypectomy/myomectomy. All pros and cons, risks and benefits of each approach were discussed with the patient, the patient decided to proceed with endometrial biopsy. EMB done, see procedure (3) Uterine myoma: Code(s): D25.9 - Leiomyoma of uterus, unspecified Category: Medical Plan: Discussed with the patient the findings on pelvic ultrasound & the risk of myosarcoma; discussed with the patient the options of treatment including expectant management versus hysterectomy; the pros and cons, risks benefits of each approach were discussed with the patient including the fact that in cases of myosarcoma, surgical treatment can lead to early diagnosis and positively affects the prognosis; after further discussion, the patient decided to think about it and get back to us next visit. Orders: Orders AMB Endometrial Biopsy Today R93.89 - Abnormal findings on diagnostic imaging of other specified body structures Coding Level of Care Code Est Pt Level 3 (11017) Procedure Only Diagnoses Cyst of right ovary N83.201 Laterality: right Endometrial thickening on ultrasound R93.89 Uterine myoma D25.9 CPT Codes Endometrial Biopsy - CPT: 78248-Csbulmknnbj Biopsy ([id number])
== END 2024-06-23 10:27 | disposition home or self-care (01) ==
PROVIDERS: PCP Internal Medicine; Visit Provider Obstetrics & Gynecology
DX: N83.201 Unspecified ovarian cyst, right side (principal); R93.89 Abnormal findings on diagnostic imaging of other specified body structures; D25.9 Leiomyoma of uterus, unspecified
CPT/HCPCS: 58100

== ENCOUNTER 2024-07-07 08:35 | Outpatient (AMB) | payer OTHER, SELFPAY ==
--- NOTE | 2024-07-07 08:38 | A.OFFVIS_ITS ---
Intake Visit Reasons: CT scan results/emb results Certified Scrub Tech: Certified Scrub Tech Present (Jennifer) Accompanied by: Self / Same As Patient Allergies No Known Allergies Allergy (Verified 07/07/24 08:43) HPI Comments Details: Presenting for follow-up. EMB pathology showed the following: Superficial strips of benign endometrium, rare endocervical and squamous epithelium; no atypia identified CA 125, CEA and CA 19-[address] scan of abdomen and pelvis with contrast showed a 8.2 cm cystic lesion in the right pelvis measuring in the range of simple fluid with no obvious enhancement or enhancing nodules along the wall, favoring or ovarian origin. This could represent benign or malignant cyst. Last co testing was in 01/22 was negative Last mammogram was in 01/26 was BI-RADS 1 PFSH Medical History Endometrial thickening on ultrasound Ovarian cyst Migraine Annual physical exam Position dependent micturition Overweight Hypothyroid Surgical History H/O colonoscopy History of endometrial ablation Family History Mother No problems noted. Father No problems noted. 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 Cognitive needs: No Hearing needs: No Vision needs: Yes Female Reproductive History Menstrual Age of Menarche: 15 Review of Systems Const All systems reviewed & are unremarkable except as noted in HPI and below Reports as per HPI and Reports no additional complaints GI Reports no additional complaints Reports no additional complaints Assessment & Plan Assessment & Plan (1) Ovarian cyst: Code(s): N83.209 - Unspecified ovarian cyst, unspecified side Category: Medical Qualifiers: Laterality: right Qualified Code(s): N83.201 - Unspecified ovarian cyst, right side Plan: Discussed with the patient the finding on CT scan showing an 8.2 cm simple ovarian cyst with no wall enhancement or nodules, discussed with the patient the normal ovarian cancer tumor marker, their sensitivity, specificity colpo negative and positive predictive value in detecting ovarian cancer. Will refer to strategic analyst Oncology for further management. All questions answered, the patient verbalized understanding. Appointment scheduled with [facility] Folded Towel Machine Operator Oncology with Dr. Amador on a 07/19/24 at 14:00, the patient is aware (2) Endometrial thickening on ultrasound: Comment: History of endometrial ablation Code(s): R93.89 - Abnormal findings on diagnostic imaging of other specified body structures Category: Medical Plan: Discussed with the patient the results of the endometrial biopsy pathology. Discussed with the patient the sensitivity, specificity, positive and negative predictive value, of endometrial biopsy in detecting endometrial pathology including but not limited to endometrial hyperplasia, cancer and other pathology; instructed the patient to call in case vaginal bleeding bleeding , the next step will be to proceed with a diagnostic hysteroscopy/D&C for further endometrial sampling evaluation to rule out endometrial pathology. All questions answered and the patient verbalized understanding and agreed with the plan. Orders: Referrals Gynecologic Oncology Referral N83.201 - Unspecified ovarian cyst, right side Coding Level of Care Code Est Pt Level 3 (54014) Diagnoses Cyst of right ovary N83.201 Laterality: right Endometrial thickening on ultrasound R93.89
== END 2024-07-07 09:33 | disposition home or self-care (01) ==
PROVIDERS: PCP Internal Medicine; Visit Provider Obstetrics & Gynecology
DX: N83.201 Unspecified ovarian cyst, right side (principal); R93.89 Abnormal findings on diagnostic imaging of other specified body structures
CPT/HCPCS: 99213

== ENCOUNTER → 2024-07-07 08:35 | Outpatient (BNVA) | payer OTHER, SELFPAY | PROVIDERS: PCP Internal Medicine; Visit Provider Obstetrics & Gynecology ==

== ENCOUNTER 2024-07-27 15:40 | Outpatient (REF) | payer OTHER, SELFPAY ==
--- NOTE | ~2024-07-27 | XR_ITS ---
EXAMINATION: XR CHEST 1 VIEW HISTORY: J43.9 - Emphysema, unspecified COMPARISON: There are no prior studies for comparison. FINDINGS: A single PA view of the chest is submitted. The lungs are expanded and clear. There is no pleural effusion, pneumothorax, or pulmonary vascular congestion. The heart is normal in size. The bones are intact. XR/XR chest 1V IMPRESSION: Clear lungs. Electronically signed by: Josiah Yun MD 07/28/2024 08:52 AM NICHOLAS
== END 2024-07-27 15:41 | disposition home or self-care (01) ==
LOC: HO.HMGCX 15:40
PROVIDERS: PCP Internal Medicine; Visit Provider Internal Medicine
DX: J43.9 Emphysema, unspecified (principal)
CPT/HCPCS: 71045

== ENCOUNTER → 2024-07-27 15:43 | Outpatient (BNV) | payer OTHER, SELFPAY | PROVIDERS: PCP Internal Medicine; Visit Provider Radiology Diagnostic Radiology | DX: J43.9 Emphysema, unspecified (principal) | CPT/HCPCS: 71045 ==

== ENCOUNTER 2025-01-18 12:44 | Outpatient (REF) | payer OTHER, SELFPAY ==
--- OUTSIDE RECORDS SUMMARY | 2025-01-18 13:37 | XMS_ITS | Patient Health Record ---
[facility] Address [address] [place] [address] Care Team Providers Care Senior Premium Auditor Name Role Phone Reyes Webber MD Primary Care Provider Unavaila ble Black, Cindy Unavailable [phone] Reason For Referral No Information Problems Problem Type SNOMED Code ICD Code Onset Dates Problem Status W/U Status Risk Notes Problem Onychomycosis (208325978) Onychomycosis (110.1) Active confirmed superficial Problem Pain in Limb (729.5) Active confirmed Plan Of Treatment Pending Test Test Name Order Date [id number] NAIL, 6 OR MORE 01/12/2014 Insurance Providers Payer Name Payer Address Payer Phone Subscriber Number Group Number Insured Name Patient Relationship to Insured Coverage Start Date Coverage End Date [facility] [address] [place] [address] [id number] Alexis Spain Spouse - patient is the spouse of the insured Medical (General) History Medical History History ICD Code Chicken pox
[2025-01-18 16:08] LABS: MANUAL DIFF FLAG NO
[2025-01-18 16:12] LABS: Hematocrit 38.8 % (37.0-47.0); Hemoglobin 12.8 g/dl (12.0-16.0); Imm Gran Abs Auto 0.02 X10*3/uL (0.00-0.03); Imm Gran Pct Auto 0.3 % (0.0-0.4); Lymphocytes Absolute Auto 2.4 X10*3/uL (1.2-4.9); Mean Corpuscular HGB Conc 33.0 g/dl (31.0-35.0); Mean Corpuscular Hemoglobin 30.8 pg (27.0-33.0); Mean Corpuscular Volume 93.3 fL (80.0-98.0); NRBC Abs Auto 0.000 X10*3/uL (0.0-0.012); NRBC Pct Auto 0.0 /100WBC (0.0-0.2); Platelet Count 224 X10*3/uL (160-400); Red Blood Count 4.16 X10*6/uL (4.20-5.50); White Blood Count 6.3 X10*3/uL (4.8-10.8)
[2025-01-18 16:19] LABS: Appearance Urine Clear; Glucose Urine UA Negative (Negative); PH 5.5 (5.0-9.0); Specific Gravity - Urine 1.025 (1.005-1.025); UMIC TRIGGER UA YES
[2025-01-18 16:37] LABS: Alanine Aminotransferase 19 U/L (0-31); Albumin Level 4.1 g/dL (3.5-5.0); Alkaline Phosphatase 93 U/L (39-117); Anion Gap 10 (12-20); Aspartate Amino Transferase 25 U/L (5-31); Blood Urea Nitrogen 22 mg/dL (9-16); Calcium 8.9 mg/dL (8.4-10.2); Carbon Dioxide 25 mmol/L (22-29); Chloride 109 mmol/L (96-108); Cholesterol 179 mg/dL (<200); Estimated Glomerular Filt Rate > 60; HDL Cholesterol 54 mg/dL (>40); Potassium 4.2 mmol/L (3.3-5.1); Sodium 140 mmol/L (135-145); Total Protein 6.7 g/dL (6.5-8.0); Triglycerides 43 mg/dL (<150)
== END 2025-01-18 12:45 | disposition home or self-care (01) ==
LOC: HO.HMGCLDS 12:44
PROVIDERS: PCP Internal Medicine; Visit Provider Internal Medicine
DX: Z00.00 Encounter for general adult medical examination without abnormal findings (principal); E03.9 Hypothyroidism, unspecified; E78.5 Hyperlipidemia, unspecified
CPT/HCPCS: 36415; 80053; 80061; 81001; 82306; 84443; 85025

== ENCOUNTER 2025-01-24 09:17 | Outpatient (REF) | payer OTHER, SELFPAY ==
--- OUTSIDE RECORDS SUMMARY | 2025-01-24 09:50 | XMS_ITS | Patient Health Record ---
[facility] Address [address] [place] [address] Care Team Providers Care Vice President Lending Name Role Phone Reyes Webber MD Primary Care Provider Unavaila ble Black, Cindy Unavailable [phone] Reason For Referral No Information Problems Problem Type SNOMED Code ICD Code Onset Dates Problem Status W/U Status Risk Notes Problem Onychomycosis (213852108) Onychomycosis (110.1) Active confirmed superficial Problem Pain in limb (32740160) Pain in Limb (729.5) Active confirmed Plan Of Treatment Pending Test Test Name Order Date [id number] NAIL, 6 OR MORE 01/12/2014 Insurance Providers Payer Name Payer Address Payer Phone Subscriber Number Group Number Insured Name Patient Relationship to Insured Coverage Start Date Coverage End Date [facility] [address] [place] [address] [id number] Alexis Spain Spouse - patient is the spouse of the insured Medical (General) History Medical History History ICD Code Chicken pox
== END 2025-01-24 09:18 | disposition home or self-care (01) ==
LOC: HO.MAMMO 09:17
PROVIDERS: PCP Internal Medicine; Visit Provider Internal Medicine
DX: Z12.31 Encounter for screening mammogram for malignant neoplasm of breast (principal)
CPT/HCPCS: 77063; 77067

== ENCOUNTER → 2025-01-24 09:30 | Outpatient (BNV) | payer OTHER, SELFPAY | PROVIDERS: PCP Internal Medicine; Visit Provider Internal Medicine | DX: Z12.31 Encounter for screening mammogram for malignant neoplasm of breast (principal) | CPT/HCPCS: 77063; 77067 ==

== ENCOUNTER 2025-02-08 11:07 | Outpatient (AMB) | payer OTHER, SELFPAY ==
--- NOTE | 2025-02-08 11:38 | A.OFFPC_ITS ---
Vital Signs 02/08/25 11:39 Height 5 ft 3 in Weight 185 lb BMI 32.8 BP 126/68 Blood Pressure Location Lt brachial Position Sitting Pulse 63 Pulse Source Pulse Oximeter Temp 97.9 F Temp Source Oral Pulse Oximetry (%) 100 Oxygen Delivery Method Room Air Intake Visit Reasons: PE Intake Note: Pt is here today for PE. Allergies No Known Allergies Allergy (Verified 02/08/25 11:39) Medication List - Last Reconciled 02/08/25 by Hailey Vega MD cholecalciferol (vitamin D3) 25 mcg PO DAILY fish oil-dha-epa PO levothyroxine 50 mcg PO DAILY lutein 6 mg PO DAILY Tobacco use date assessed: 02/08/25 Dental Screening Dental Screen Date: 02/08/25 Did you have a dental visit in the last 12 months?: Yes Did you have a dental problem in the last 6 months where you did not have access to dental care?: No Was dental information given to patient?: Patient has dentist HPI PE HPI Details Patient presents for physical. She underwent hysterectomy for ovarian cyst which was benign. Patient was noted to have mild emphysema on CT of the abdomen. She denies history of smoking but was exposed to secondhand smoking because above parents smoked at home. Patient denies shortness or breath cough wheezing. [facility] Medical History (Updated 02/08/25 @ 12:16 by Hailey Vega MD) Emphysema lung Ovarian cyst Migraine Annual physical exam Position dependent micturition Overweight Hypothyroid Surgical History S/P total hysterectomy and BSO (bilateral salpingo-oophorectomy) H/O colonoscopy History of endometrial ablation Family History Mother No problems noted. Father No problems noted. 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 1. Little interest or pleasure in doing things: not at all 2. Feeling down, depressed, or hopeless: not at all 3. Trouble falling or staying asleep, or sleeping too much: not at all 4. Feeling tired or having little energy: not at all 5. Poor appetite or overeating: not at all 6. Feeling bad about yourself - or that you are a failure or have let yourself or your family down: not at all 7. Trouble concentrating on things, such as reading the newspaper or watching television: not at all 8. Moving or speaking so slowly that other people could have noticed. Or the opposite - being so fidgety or restless that you have been moving around a lot more than usual: not at all 9. Thoughts that you would be better off or of hurting yourself in some way: not at all Total score: 0 Depression Screening Interpretation: Negative Depression Screening Done: Yes 36066 - PHQ-9 Billing: Yes Source: Developed by Drs. Josiah Garcia, Ramonita James, Jasiel Elam and colleagues, with an educational devin from [employer]. Thrive Questionnaire Date Thrive assessed: 02/01/25 I am a: Patient What is your living situation today?: I have a steady place to live Within the past 12 months, did the food you bought not last and you didn't have the money to get more?: Never true Within the past 12 months, did you worry whether your food would run out before you got money to buy more?: Never true Do you have trouble paying for medicines?: No Do you have trouble getting transportation to medical appointments?: No Do you have trouble paying your heating and electricity bill?: No Do you have trouble taking care of your child, family member or friend?: No Do you have trouble with day-to-day activities such as bathing, preparing meals, shopping, managing finances, etc.?: No Are you currently unemployed and looking for a job?: No Are you interested in more education?: No Please select the resources that you would like help with: None Currently or been in a relationship where the following occur: No concerns reported THRIVE Score: 0 AUDIT C Alcohol Use Questionnaire (AUDIT-C) 1. How often do you have a drink containing alcohol?: Never 3. How often do you have six or more drinks on one occasion?: Never Total Score: 0 LILIYA-7 AMB Questionnaire LILIYA-7 Date LILIYA - 7 assessed: 02/08/25 Feeling nervous, anxious, or on edge: 0 = Not at all Not being able to stop or control worryin = Not at all Worrying too much about different things: 0 = Not at all Trouble relaxin = Not at all Being so restless that it is hard to sit still: 0 = Not at all Becoming easily annoyed or irritable: 0 = Not at all Feeling afraid as if something awful might happen: 0 = Not at all Total LILIYA-7 score (0-4 normal; 5-9 mild; 10-14 moderate; 15-21 severe): 0 Source: Developed by Drs. Josiah Garcia, Ramonita James, Jasiel Elam and colleagues, with an educational devin from [employer]. LILIYA-7 Assessment Billing LILIYA-7 Assessment Tool: LILIYA-7 Assessment 72040 Review of Systems Const All systems reviewed & are unremarkable except as noted in HPI and below Reports no additional complaints Eyes Reports no additional complaints ENT Reports no additional complaints Card Reports no additional complaints Resp Reports no additional complaints GI Reports no additional complaints Reports no additional complaints Physical exam (Primary Care) Vital Signs: Last Vital Signs Temp 97.9 F 02/08/25 11:39 Pulse 63 02/08/25 11:39 BP 126/68 02/08/25 11:39 Pulse Ox 100 02/08/25 11:39 Oxygen Delivery Method Room Air 02/08/25 11:39 BMI result Body Mass Index 32.8 Tobacco/Smoking Status: Tobacco use Status Tobacco use date assessed 02/08/25 02/08/25 11:43 Patient Tobacco Use Status Never used Tobacco 02/08/25 11:43 e-Cigarette/Vaping Use Never Used 02/08/25 11:43 PHQ-9: PHQ-9 Score PHQ-9: Total score 0 02/08/25 11:43 Depression Screening Interpretation: Negative Thrive Assessment: Date of Thrive Assessment Date Thrive assessed 02/01/25 02/08/25 11:43 Currently or been in a relationship where the following occur: No concerns reported Const General: no acute distress HENMT Head: Yes normal to inspection Ears: hearing grossly normal bilaterally Face and sinus: Yes normal facial exam Mouth: Normal oral and palatal mucosa present Eyes General: appearance normal, both eyes and all related structures Neck Neck: Yes no lymphadenopathy and Yes supple Resp Effort & Inspection: normal respiratory effort Auscultation: clear to auscultation bilaterally Cardio Rhythm: regular rhythm Heart sounds: S1 normal heart sound present and S2 normal heart sound present GI Inspection: Yes normal to inspection Palpation (GI): Soft to palpation Percussion: Yes normal to percussion Auscultation: normal bowel sounds Coding Level of Care Code Est Pt Prev Care 40-64y(43321) Diagnoses Emphysema lung J43.9 Morbid obesity with BMI of 40.0-44.9, adult E66.01; Z68.41 Hypothyroid E03.9 Annual physical exam Z00.00 Heart murmur R01.1 Hyperlipidemia E78.5 Additional Codes LILIYA-7 Assessment Billing - LILIYA-7 Assessment Tool: LILIYA-7 Assessment 70519 ([id number]) PHQ-9 - 10755 - PHQ-9 Billing: Yes ([id number]) Assessment & Plan Assessment & Plan (1) Emphysema lung: Comment: on CT, SECONDHAND SMOKING EXPOSURE Code(s): J43.9 - Emphysema, unspecified Category: Medical Plan: Obtain PFT (2) Morbid obesity with BMI of 40.0-44.9, adult: Comment: In weight watchers lost 30 lb in 2023 Code(s): E66.01 - Morbid (severe) obesity due to excess calories; Z68.41 - Body mass index [BMI] 40.0-44.9, adult Category: Medical Plan: Increasing physical activity decreasing caloric intake (3) Hypothyroid: Comment: taking levothyroxine Code(s): E03.9 - Hypothyroidism, unspecified Category: Medical Plan: Continue levothyroxine (4) Annual physical exam: Code(s): Z00.00 - Encounter for general adult medical examination without abnormal findings Category: Medical Plan: Well-balanced diet regular physical activity discussed with the patient (5) Heart murmur: Comment: Echo 04/27 nl EF, HEAVY CALCIFICATIONS ON AORTIC AND MITRAL VALVES Code(s): R01.1 - Cardiac murmur, unspecified Category: Medical Plan: Repeat echocardiogram to rule out aortic stenosis (6) Hyperlipidemia: Comment: Diet-controlled Code(s): E78.5 - Hyperlipidemia, unspecified Category: Medical Plan: Continue low-cholesterol diet Orders: Orders PFT pulmonary function test Today J43.9 - Emphysema, unspecified Comprehensive [place]. Panel Fast 1 Year E03.9 - Hypothyroidism, unspecified, E66.01 - Morbid (severe) obesity due to excess calories, E78.5 - Hyperlipidemia, unspecified, Z00.00 - Encounter for general adult medical examination without abnormal findings, Z68.41 - Body mass index [BMI] 40.0-44.9, adult Complete Blood Count Auto Diff 1 Year E03.9 - Hypothyroidism, unspecified, E66.01 - Morbid (severe) obesity due to excess calories, E78.5 - Hyperlipidemia, unspecified, Z00.00 - Encounter for general adult medical examination without abnormal findings, Z68.41 - Body mass index [BMI] 40.0-44.9, adult Vitamin D 25-OH Total 1 Year E03.9 - Hypothyroidism, unspecified, E66.01 - Morbid (severe) obesity due to excess calories, E78.5 - Hyperlipidemia, unspecified, Z00.00 - Encounter for general adult medical examination without abnormal findings, Z68.41 - Body mass index [BMI] 40.0-44.9, adult CA Echo Limited Today R01.1 - Cardiac murmur, unspecified Lipid Panel 1 Year E03.9 - Hypothyroidism, unspecified, E66.01 - Morbid (severe) obesity due to excess calories, E78.5 - Hyperlipidemia, unspecified, Z00.00 - Encounter for general adult medical examination without abnormal findings, Z68.41 - Body mass index [BMI] 40.0-44.9, adult TSH reflex Free T4 1 Year E03.9 - Hypothyroidism, unspecified
[2025-02-08 11:39] VITALS: BP 126/68; PULSE 63; TEMP 36.6; O2SAT 100; BMI 32.8
--- OUTSIDE RECORDS SUMMARY | 2025-02-08 11:57 | XMS_ITS | Patient Health Record ---
Author [facility] [place] Address [address] [place] [address] Care Team Providers Care Lsw Name Role Phone Reyes Webber MD Primary Care Provider Unavaila ble Black, Cindy Unavailable [phone] Reason For Referral No Information Problems Problem Type SNOMED Code ICD Code Onset Dates Problem Status W/U Status Risk Notes Problem Onychomycosis (276090520) Onychomycosis (110.1) Active confirmed superficial Problem Pain in Limb (729.5) Active confirmed Plan Of Treatment Pending Test Test Name Order Date [id number] NAIL, 6 OR MORE 01/12/2014 Insurance Providers Payer Name Payer Address Payer Phone Subscriber Number Group Number Insured Name Patient Relationship to Insured Coverage Start Date Coverage End Date [facility] [address] [place] [address] [phone] [id number] Alexis Spain Spouse - patient is the spouse of the insured Medical (General) History Medical History History ICD Code Chicken pox
== END 2025-02-08 12:05 | disposition home or self-care (01) ==
LOC: HO.HMCC 11:07
PROVIDERS: Visit Provider Internal Medicine
DX: J43.9 Emphysema, unspecified (principal); E66.01 Morbid (severe) obesity due to excess calories; Z68.41 Body mass index [BMI] 40.0-44.9, adult; E03.9 Hypothyroidism, unspecified; Z00.00 Encounter for general adult medical examination without abnormal findings; R01.1 Cardiac murmur, unspecified; E78.5 Hyperlipidemia, unspecified

== ENCOUNTER → 2025-02-08 11:07 | Outpatient (BNVA) | payer OTHER, SELFPAY | PROVIDERS: Visit Provider Internal Medicine | DX: Z00.00 Encounter for general adult medical examination without abnormal findings (principal); J43.9 Emphysema, unspecified; E66.01 Morbid (severe) obesity due to excess calories; Z68.41 Body mass index [BMI] 40.0-44.9, adult; E03.9 Hypothyroidism, unspecified; R01.1 Cardiac murmur, unspecified; E78.5 Hyperlipidemia, unspecified; Z68.32 Body mass index [BMI] 32.0-32.9, adult | CPT/HCPCS: 96127 ==

== ENCOUNTER → 2025-03-22 12:57 | Outpatient (REF) | payer OTHER, SELFPAY ==
--- NOTE | 2025-03-22 13:00 | CA_ITS ---
Transthoracic Echocardiogram Patient (Last, First, Middle): Amarilis Spain, Gender: Female Date of : 1965 Age: 60 Procedure Date: 03/22/2025 Procedure Type: Transthoracic Echocardiogram Location: OP Height: 160.02 cm Weight: 82.56 kg BSA: 1.86 m2 Heart Rate: 60 bpm BP: 137 / 78 mmHg Offset Second Press Operator: TO Referring MD: Hailey Vega MD Symptoms: R01.1 - Cardiac murmur, unspecified Study Quality: Adequate ECG Rhythm: Sinus Conclusions: - The left ventricular systolic function is normal. The calculated ejection fraction is 69% by biplane method. - There is moderate calcification of the aortic valve. There is mild aortic valve stenosis. - There is moderate mitral annular calcification. Findings Left Ventricle Normal left ventricular cavity size. The left ventricular systolic function is normal. The calculated ejection fraction is 69% by biplane method. There is no evidence of regional wall motion abnormalities. Evidence suggests grade I (mild) diastolic dysfunction. There is mild septal asymmetric hypertrophy. Right Ventricle Mildly increased right ventricular cavity size. There is normal right ventricular systolic function. Atria The left atrium is moderately dilated. The right atrium is normal in size. Aortic Valve There is moderate calcification of the aortic valve. There is mild aortic valve stenosis. There is trace (trivial) aortic valve regurgitation. Mitral Valve There is moderate mitral annular calcification. There is no mitral valve regurgitation. There is no mitral valve stenosis. Pulmonic Valve The pulmonic valve is likely normal. Tricuspid Valve There is trace tricuspid valve regurgitation. There is no evidence of pulmonary hypertension. Great Vessels The asc aorta is normal in size. Venous The inferior vena cava is mildly dilated and collapses greater than 50% with inspiration. Pericardium/Pleural There is no evidence of pericardial effusion. Prior Study Comparison No significant change compared to prior study dated: 02/05/2023. Measurements 2D Linear Measurements IVSd: 1.08 0.6-0.9/0.6-1.0 cm LVIDd: 4.87 3.9-5.3/4.2-5.9 cm LVIDd Index: 2.62 2.4-3.2/2.2-3.1 cm/m2 LVIDs: 2.78 2.0-3.6 cm LVPWd: 0.88 0.7-1.1 cm LA Diam: 4.40 2.7-3.8/3.0-4.0 cm LAIDs Index: 2.37 1.5-2.3 cm/m2 LV Mass: 211.24 67-162/88-224 g LV Mass Index: 113.57 43-95/49-115 g/m2 LVOT Diam: 2.00 3.0+(-)1.3 cm 2D Systolic Function EF 4C: 68.20 >55% EF 2C: 69.90 >55% EF BiP: 68.60 >55% Mitral Valve MV VTI: 0.52 MV Pk Castillo: 1.60 MV Mn Castillo: 0.92 MV Pk Grad: 10.00 MV Mn Grad: 4.00 MV Pk E: 1.19 MV PK A: 1.36 MV Decel Time: 289.00 E/A: 0.90 E'Lateral: 5.33 E'Medial: 4.57 E/E' Med: 26.00 E/E' Lat: 22.30 PHT: 85.00 MVA PHT: 2.59 MVA Continuity: 1.88 Decel Hood: 4.10 Aortic Valve AoV Pk Castillo: 2.24 AoV Mn Castillo: 1.71 AoV VTI: 0.59 AoV Pk Grad: 20.00 Aov Mn Grad: 13.00 SREEKANTH Cont.VTI: 1.64 LVOT LVOT Pk Castillo: 1.22 LVOT Mn Castillo: 0.84 LVOT VTI: 0.31 LVOT Pk Grad: 6.00 LVOT Mn Grad: 3.00 LVOT Diam: 2.00 LVOT Area: 3.14 Diastolic Function MV Pk E: 1.19 MV Pk A: 1.36 E/A: 0.90 E'Medial: 4.57 E/E' Med: 26.00 E' Laterial: 5.33 E/E' Lat: 22.30 Right Ventricle TAPSE (mm): 31.70 TVS' Castillo: 17.20 Tricuspid Valve TR Pk Castillo: 2.38 TR Pk Grad: 23.00 RA Press: 8.00 RVSP: 31.00 Great Vessels Aorta Sinus of Valsalva: 2.94 2.0-3.5 cm Ao Asc: 3.00 2.1-3.4 cm Updated in Other Vendor System with Status of Final Alex Mejia MD electronically signed on 03/24/2025 9:25:14 AM with status of Final
--- OUTSIDE RECORDS SUMMARY | 2025-03-22 16:25 | XMS_ITS | Patient Health Record ---
[facility] Address [address] [place] [address] Care Team Providers Care Complaint Investigations Officer Name Role Phone Reyes Webber MD Primary Care Provider Unavaila ble Black, Cindy Unavailable [phone] Reason For Referral No Information Problems Problem Type SNOMED Code ICD Code Onset Dates Problem Status W/U Status Risk Notes Problem Onychomycosis (536339892) Onychomycosis (110.1) Active confirmed superficial Problem Pain in limb (65024569) Pain in Limb (729.5) Active confirmed Plan Of Treatment Pending Test Test Name Order Date [id number] NAIL, 6 OR MORE 01/12/2014 Insurance Providers Payer Name Payer Address Payer Phone Subscriber Number Group Number Insured Name Patient Relationship to Insured Coverage Start Date Coverage End Date [facility] [address] [place] [address] [phone] [id number] Alexis Spain Spouse - patient is the spouse of the insured Medical (General) History Medical History History ICD Code Chicken pox
== END ==
LOC: HO.CARD 12:57
PROVIDERS: Visit Provider Internal Medicine
DX: R01.1 Cardiac murmur, unspecified (principal)
CPT/HCPCS: 93306

== ENCOUNTER → 2025-03-22 13:00 | Outpatient (BNV) | payer OTHER, SELFPAY | PROVIDERS: Visit Provider Internal Medicine | DX: I34.81 Nonrheumatic mitral (valve) annulus calcification (principal); I35.8 Other nonrheumatic aortic valve disorders | CPT/HCPCS: 93306 ==

== ENCOUNTER 2025-04-19 13:51 | Outpatient (REF) | payer OTHER, SELFPAY ==
--- NOTE | 2025-04-19 14:04 | PFT_ITS ---
Flows: FEV1: 107 % of predicted at 2.52 L FVC: 98 % of predicted at 2.93 L FEV1/FVC: 86 % Bronchodilator response: Present Volumes: Total lung capacity: 91 % of predicted at 4.45 L Residual volume: 85 % of predicted at 1.45 L Slow vital capacity: 93 % of predicted at 3.00 L Expiratory reserve volume: 117 % of predicted at 0.91 L Diffusion capacity: Normal Impression: No obstructive or restrictive ventilatory defect. Positive bronchodilator response. MTDD
[2025-04-19 14:53] VITALS: PULSE 59
--- OUTSIDE RECORDS SUMMARY | 2025-04-19 17:36 | XMS_ITS | Patient Health Record ---
[facility] Address [address] [place] [address] Care Team Providers Care Baller Tender Name Role Phone Reyes eWbber MD Primary Care Provider Unavaila ble Black, Cindy Unavailable [phone] Reason For Referral No Information Problems Problem Type SNOMED Code ICD Code Onset Dates Problem Status W/U Status Risk Notes Problem Onychomycosis (179076708) Onychomycosis (110.1) Active confirmed superficial Problem Pain in limb (07839350) Pain in Limb (729.5) Active confirmed Plan Of Treatment Pending Test Test Name Order Date [id number] NAIL, 6 OR MORE 01/12/2014 Insurance Providers Payer Name Payer Address Payer Phone Subscriber Number Group Number Insured Name Patient Relationship to Insured Coverage Start Date Coverage End Date [facility] [address] [facility] [place] [address] [phone] [id number] Alexis Spain Spouse - patient is the spouse of the insured Medical (General) History Medical History History ICD Code Chicken pox
== END 2025-04-19 13:52 | disposition home or self-care (01) ==
LOC: HO.RESP 13:51
PROVIDERS: PCP Internal Medicine; Visit Provider Internal Medicine
DX: J43.9 Emphysema, unspecified (principal)
CPT/HCPCS: 94060; 94640; 94727; 94729

== ENCOUNTER → 2025-04-19 14:04 | Outpatient (BNV) | payer OTHER, SELFPAY | PROVIDERS: PCP Internal Medicine; Visit Provider Internal Medicine Pulmonary Disease | DX: J43.9 Emphysema, unspecified (principal) | CPT/HCPCS: 94060; 94727; 94729 ==

== ENCOUNTER 2025-05-11 09:38 | Outpatient (AMB) | payer OTHER, SELFPAY ==
[2025-05-11 09:43] VITALS: BP 134/74; PULSE 79; TEMP 36.7; O2SAT 99; BMI 34.5
--- NOTE | 2025-05-11 09:43 | A.OFFPC_ITS ---
Vital Signs 05/11/25 09:43 Height 5 ft 3 in Weight 195 lb BMI 34.5 BP 134/74 Blood Pressure Location Lt brachial Position Sitting Pulse 79 Pulse Source Pulse Oximeter Temp 98.1 F Temp Source Oral Pulse Oximetry (%) 99 Oxygen Delivery Method Room Air Intake Visit Reasons: Left leg swelling Intake Note: Pt is here today for a sick visit. Pt c/o lower leg swelling since Thursday. Pt states that she just cam back from trip in [place]. Allergies No Known Allergies Allergy (Verified 05/11/25 09:47) Tobacco use date assessed: 02/08/25 Dental Screening Dental Screen Date: 02/08/25 HPI Left leg swelling HPI Details Patient presents complaining of lower extremity swelling left more than right since she came back from a trip, [place] cruise, 2 days ago. Patient denies any pain or redness in the legs, fever chills shortness or breath. PFSH Medical History Emphysema lung Ovarian cyst Migraine Annual physical exam Position dependent micturition Overweight Hypothyroid Surgical History S/P total hysterectomy and BSO (bilateral salpingo-oophorectomy) H/O colonoscopy History of endometrial ablation Family History Mother No problems noted. Father No problems noted. 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 Cognitive needs: No Hearing needs: No Vision needs: Yes Female Reproductive History Menstrual Age of Menarche: 15 Questionnaire Thrive Questionnaire Date Thrive assessed: 02/01/25 I am a: Patient What is your living situation today?: I have a steady place to live Within the past 12 months, did the food you bought not last and you didn't have the money to get more?: Never true Within the past 12 months, did you worry whether your food would run out before you got money to buy more?: Never true Do you have trouble paying for medicines?: No Do you have trouble getting transportation to medical appointments?: No Do you have trouble paying your heating and electricity bill?: No Do you have trouble taking care of your child, family member or friend?: No Do you have trouble with day-to-day activities such as bathing, preparing meals, shopping, managing finances, etc.?: No Are you currently unemployed and looking for a job?: No Are you interested in more education?: No Please select the resources that you would like help with: None Currently or been in a relationship where the following occur: No concerns reported THRIVE Score: 0 AUDIT C Alcohol Use Questionnaire (AUDIT-C) 2. How many drinks containing alcohol do you have on a typical day when you are drinking?: 1 or 2 3. How often do you have six or more drinks on one occasion?: Never Total Score: 0 LILIYA-7 AMB Questionnaire LILIYA-7 Date LILIYA - 7 assessed: 02/08/25 Source: Developed by Drs. Josiah Garcia, Ramonita James, Jasiel Elam and colleagues, with an educational devin from [employer]. Review of Systems Const All systems reviewed & are unremarkable except as noted in HPI and below Eyes Reports no additional complaints ENT Reports no additional complaints Card Reports no additional complaints Resp Reports no additional complaints GI Reports no additional complaints Reports no additional complaints Physical exam (Primary Care) Vital Signs: Last Vital Signs Temp 98.1 F 05/11/25 09:43 Pulse 79 05/11/25 09:43 BP 134/74 05/11/25 09:43 Pulse Ox 99 05/11/25 09:43 Oxygen Delivery Method Room Air 05/11/25 09:43 BMI result Body Mass Index 34.5 Tobacco/Smoking Status: Tobacco use Status Tobacco use date assessed 02/08/25 05/11/25 09:49 Patient Tobacco Use Status Never used Tobacco 05/11/25 09:49 e-Cigarette/Vaping Use Never Used 05/11/25 09:49 Thrive Assessment: Date of Thrive Assessment Date Thrive assessed 02/01/25 05/11/25 09:49 Currently or been in a relationship where the following occur: No concerns reported Const General: no acute distress HENOH Head: Yes normal to inspection Mouth: Normal oral and palatal mucosa present Eyes General: appearance normal, both eyes and all related structures Neck Neck: Yes supple Resp Effort & Inspection: normal respiratory effort Auscultation: clear to auscultation bilaterally Cardio Rhythm: regular rhythm Heart sounds: S1 normal heart sound present and S2 normal heart sound present GI Inspection: Yes normal to inspection Palpation (GI): Soft to palpation Percussion: Yes normal to percussion Auscultation: normal bowel sounds Extrem Other: 2+ pitting edema both lower extremities left more than right, there is no erythema or calf tenderness Coding Level of Care Code Est Pt Level 3 (31452) Diagnoses Bilateral lower extremity edema R60.0 Assessment & Plan Assessment & Plan (1) Bilateral lower extremity edema: Code(s): R60.0 - Localized edema Category: Medical Plan: For lower extremity edema check D-dimer to rule out DVT. Patient was advised to elevate lower extremities increase physical activity and follow low-sodium diet Orders: Orders D Dimer High Sensitivity Today R60.9 - Edema, unspecified
--- OUTSIDE RECORDS SUMMARY | 2025-05-11 10:53 | XMS_ITS | Patient Health Record ---
Author [facility] Address [address] [place] [address] Care Team Providers Care Transverse Abdominal Muscle Nurse Name Role Phone Reyes Webber MD Primary Care Provider Unavaila ble Black, Cindy Unavailable [phone] Reason For Referral No Information Problems Problem Type SNOMED Code ICD Code Onset Dates Problem Status W/U Status Risk Notes Problem Onychomycosis (416926384) Onychomycosis (110.1) Active confirmed superficial Problem Pain in limb (23830434) Pain in Limb (729.5) Active confirmed Plan Of Treatment Pending Test Test Name Order Date [id number] NAIL, 6 OR MORE 01/12/2014 Insurance Providers Payer Name Payer Address Payer Phone Subscriber Number Group Number Insured Name Patient Relationship to Insured Coverage Start Date Coverage End Date [facility] [address] [place] [address] [id number] Alexis [place] Spouse - patient is the spouse of the insured Medical (General) History Medical History History ICD Code Chicken pox
== END 2025-05-11 11:02 | disposition home or self-care (01) ==
LOC: HO.HMCC 09:39
PROVIDERS: PCP Internal Medicine; Visit Provider Internal Medicine
DX: R60.0 Localized edema (principal)

== ENCOUNTER 2025-05-11 09:38 | Outpatient (REF) | payer OTHER, SELFPAY ==
[2025-05-11 13:28] LABS: D Dimer High Sensitivity 200 NG/ML
== END 2025-05-11 09:39 | disposition home or self-care (01) ==
LOC: HO.HMGCLDS 09:38
PROVIDERS: PCP Internal Medicine; Visit Provider Internal Medicine
DX: R60.0 Localized edema (principal)
CPT/HCPCS: 36415; 85379